=== PATIENT | female | born 1980 | race Two or more races ===

== ENCOUNTER 2019-07-19 10:07 | Inpatient (IN) | payer MEDICAID, OTHER ==
[~2019-07-19] VITALS: Ht 160 cm; Wt 70.0 kg
[2019-07-19] MEDS ORDERED: LORazepam 2MG/ML-1ML VIAL IV ONE ×2 (10:15→10:30)
[2019-07-19] MEDS ORDERED: SODIUM CHLORIDE 0.9% 1,000 ML IV ONE ×3 (10:15→10:17)
[2019-07-19] MEDS ORDERED: ACETAMINOPHEN 650 MG RECT SUPP PR ONE (10:15)
[2019-07-19 11:07] LABS: Basophils # (auto) 0 uL; Basophils % (auto) 0.4 % (0.0-2.0); Eosinophils # (auto) 0 uL; Eosinophils % (auto) 0.1 % (0.0-7.0); Hematocrit 38.1 % (36.0-46.0); Lymphocytes # (auto) 0.3 uL; Mean Corpuscular Hemoglobin 28.8 pg (28.0-32.0); Mean Corpuscular Hgb Conc. 34.1 g/dL (32.0-36.0); Mean Corpuscular Volume 84.7 fL (80.0-100.0); Monocytes # (auto) 0.2 uL; Monocytes % (auto) 2.7 % (0.0-12.0); Neutrophils % (auto) 92.8 % (37.0-80.0); Platelet Count (auto) 206 10^3/uL (140-450); Red Blood Cells 4.51 10^6/uL (4.0-5.20); Red Cell Distribution Width 15.1 % (11.8-14.3); White Blood Cell 6.4 10^3/uL (4.4-10.8)
[2019-07-19 11:19] LABS: Urine Bacteria NONE SEEN /hpf (None Seen); Urine Blood 2+ /uL (Negative); Urine Hyaline Cast FEW /lpf (0 - 2); Urine Mucus FEW (None Seen); Urine Specific Gravity 1.017 (1.001-1.035); Urine WBC 1 /hpf (0 - 5)
[2019-07-19 13:10] LABS: Alkaline Phosphatase 84 U/L (45-117); Anion Gap 9 (5-15); Aspartate Aminotransferase 66 U/L (15-37); BUN/Creatinine Ratio 14.1; Blood Urea Nitrogen 14 mg/dL (7-18); Carbon Dioxide 16 mmol/L (21-32); Chloride 115 mmol/L (98-107); GFR African American 80 mL/min; GFR Non-African American 66 mL/min; Glucose 66 mg/dL (74-106); Potassium 4.8 mmol/L (3.5-5.1); Sodium 140 mmol/L (136-145)
[2019-07-19 13:11] LABS: Alanine Aminotransferase 61 U/L (13-56); Albumin 3.7 g/dL (3.4-5.0); Bilirubin, Total 0.4 mg/dL (0.2-1.0); Calcium 7.7 mg/dL (8.5-10.1); Total Protein 8.3 g/dL (6.4-8.2)
[2019-07-19 13:30] LABS: INR 1.06 (0.9-1.15); Partial Thromboplastin Time 29.3 sec (23.64-32.05)
[2019-07-19] MEDS ORDERED: TEMAZEPAM 15 MG CAP PO PRN (14:15)
[2019-07-19] MEDS ORDERED: MORPHINE SULF INJ 2 MG/ML SYRINGE 1ML IV PRN (14:15)
[2019-07-19] MEDS ORDERED: PROMETHAZINE HCL 25 MG/ML 1ML IV PRN (14:15)
[2019-07-19] MEDS ORDERED: NITROGLYCERIN 0.4 MG SL TAB SL PRN (14:15)
[2019-07-19] MEDS ORDERED: traMADol HCL 50 MG TAB PO PRN (14:15)
[2019-07-19] MEDS ORDERED: LACTULOSE 20Gm/30ML SOLN PO PRN (14:15)
[2019-07-19] MEDS ORDERED: ACETAMINOPHEN 500 MG TAB PO PRN (14:15)
[2019-07-19] MEDS: SODIUM CHLORIDE 0.9% 1,000 ML IV SCH (14:37)
[2019-07-19] MEDS ORDERED: LEVETIRACETAM INJ 500 MG in D5W 5% 100 ML IV ONE (15:15)
--- NOTE | 2019-07-19 15:20 | NUR ---
REPORT RECEIVED SBAR FROM GILL YAP
--- NOTE | 2019-07-19 15:30 | NUR ---
Telemetry admit from [facility] admitted to Telemetry unit after SBAR received. Patient oriented to ROSS DELANEY,RN primary RN, unit, room, bed, and unit policies regarding patient care and visiting hours. Patient now on continuous telemetry monitoring, tele box # 10 and telemetry reading on arrival to unit is 105 ST. Patient placed on bedside oxygen, weighed by bedscale and encouraged to call if they need something. Seizure precautions in place. Bed in low/locked position, bed rails up x2. HOB 30 degrees. Brooks catheter in place hung below bladder, no kinks in tubing, patent and draining. Patient on 2L N/C. Will continue to monitor.
[2019-07-19] MEDS ORDERED: cefTRIAXone 1GM/50ML D5W 50 ML IV ONE (15:45)
--- NOTE | 2019-07-19 15:45 | NUR ---
TEMPERATURE PATIENT TEMPERATURE 101.6. COOLING MEASURES IN PLACE. WILL CONTINUE TO MONITOR
[2019-07-19 16:00] VITALS: BP 103/59
[2019-07-19 16:17] VITALS: BP 103/59
--- NOTE | 2019-07-19 16:30 | NUR ---
TEMPERATURE REASSESSMENT OF TEMPERATURE 98.9F. WILL CONTINUE TO MONITOR
--- NOTE | 2019-07-19 19:40 | NUR ---
Opening Shift Note Assumed care of patient. Patient resting in bed with eyes closed, non-verbal, only moans, withdrawals and squints eyes to deep stimuli, does not follows direction. On oxygen at 2L via NC with even and unlabored respirations, no S/S of distress or SOB. Brooks secured and intact, draining to gravity, no kinks. IV to left AC 18 g intact and patent infusing NS at 75ml/hr. Seizure precautions in place, bed low locked position, HOB elevated 30 degrees, side rails up x 3 and call light within reach, bed alarm on. Will continue to monitor for changes Q1hr and PRN.
--- NOTE | 2019-07-19 20:00 | NUR ---
Moira Moss NP RE: Scheduled 2200 Keppra PO patient unable to swallow PO medication. Awaiting call back. Will continue care.
--- NOTE | 2019-07-19 20:45 | NUR ---
received call back from Moss, ROLL PANNER updated on patient status, new orders received, read back and verified, will carry out orders and continue care.
[2019-07-19] MEDS: LEVETIRACETAM INJ 500 MG in D5W 5% 100 ML IV SCH (21:52)
[2019-07-19 22:00] VITALS: BP 100/58
[2019-07-19] MEDS ORDERED: LEVETIRACETAM 500 MG TAB PO SCH (22:00)
[2019-07-20] VITALS (59 sets, daily range): BP systolic 95–126; BP diastolic 14–86
[2019-07-20] MEDS: SODIUM CHLORIDE 0.9% 1,000 ML IV SCH ×3 (06:36→20:30)
[2019-07-20] MEDS: LORazepam 2MG/ML-1ML VIAL IV PRN ×4 (06:53→10:21)
--- NOTE | 2019-07-20 06:55 | NUR ---
Seizure Received call from tele RE: HR 130's. Entered room with secondary RN Sean, noted tonic clonic seizure lasted approximately 15 seconds. Ativan was administer. BP 124/75 HR 119 o296%.
--- NOTE | 2019-07-20 07:25 | NUR ---
Paged Hospitalist Ajay GREGORY RE: Seizure entered room with day shift RN Maria Luisa, noted tonic clonic seizure lasted approximately 15 seconds. Ativan was administered.
--- NOTE | 2019-07-20 07:35 | NUR ---
Ajay FORM TAMPER OPERATOR and Fuel Yard Operator Radha at bedside for evaluation. maintenance shop clerk Jenaro long.
[2019-07-20] MEDS ORDERED: SUCCINYLCHOLINE CHLORIDE 20 MG/ML 10ML VIAL IV ONE ×2 (07:45)
[2019-07-20] MEDS ORDERED: ETOMIDATE (2MG/ML) 20ML VIAL IV ONE (07:45)
--- NOTE | 2019-07-20 07:45 | NUR ---
Family updated on patient status, Ajay INTERNET NETWORK SPECIALIST spoke with patients mother Lindsey.
--- NOTE | 2019-07-20 07:50 | NUR ---
Mookie Moss ACNP at bedside for assessment and determined patient needs to be intubated after patient failed to respond correctly and would not wake appropriately. Mother called and is bulgarian speaking only and Mookie spoke with mother. Orders received and carried out
--- NOTE | 2019-07-20 07:53 | NUR ---
15 mg Etomidate and 80 mg of Succinylcholine given by primary RN Maria Luisa per Mookie Moss orders
--- NOTE | 2019-07-20 07:55 | NUR ---
Patient intubated by Mookie DICKINSON. Size 8 and 22 at the lip. Assisted by Ally ANDERSON
[2019-07-20] MEDS ORDERED: MIDAZOLAM DRIP 50 mg/50mL 50 ML IV ONE (08:00)
[2019-07-20] MEDS: MIDAZOLAM DRIP 50 mg/50mL 50 ML IV SCH ×5 (08:10→23:44)
[2019-07-20] MEDS ORDERED: SODIUM CHLORIDE 0.9% 500 ML IV ONE (08:15)
--- NOTE | 2019-07-20 08:36 | NUR ---
Orogastric tube insertion All questions addressed. OGT inserted per MD order. Placement verified by aspiration of stomach contents, auscultation and chest xray.
--- NOTE | 2019-07-20 09:10 | NUR ---
REPORT REPORT GIVEN TO GILL YAP, IN ICU
--- NOTE | 2019-07-20 09:15 | NUR ---
Dr. Bryson notified regarding Pulmonary consult.
--- NOTE | 2019-07-20 09:25 | NUR ---
TRANSFER PATIENT TRANSFERRED TO ICU
[2019-07-20] MEDS: ACETAMINOPHEN 650 mg PER 20 mL UD PO PRN (09:51)
[2019-07-20] MEDS: cefTRIAXone 1GM/50ML D5W 50 ML IV SCH (09:54)
[2019-07-20] MEDS: LEVETIRACETAM INJ 500 MG in D5W 5% 100 ML IV SCH (10:15)
--- NOTE | 2019-07-20 10:22 | NUR ---
Witnessed patient having a seizure lasting approximately 1 minute. Ativan 1mg IVP given per PRN orders. Seizure precaution implemented per protocol. Side rails are padded.
--- NOTE | 2019-07-20 10:24 | NUR ---
Dr. Bryson at bedside.
[2019-07-20 10:36] LABS: Basophils # (auto) 0 uL; Basophils % (auto) 0.4 % (0.0-2.0); Eosinophils # (auto) 0 uL; Eosinophils % (auto) 0.1 % (0.0-7.0); Hemoglobin 11.7 g/dL (12.2-16.2); Lymphocytes # (auto) 0.7 uL; Lymphocytes % (auto) 12.5 % (10.0-50.0); Mean Corpuscular Hemoglobin 28.6 pg (28.0-32.0); Mean Corpuscular Hgb Conc. 33.4 g/dL (32.0-36.0); Mean Corpuscular Volume 85.8 fL (80.0-100.0); Monocytes # (auto) 0.4 uL; Monocytes % (auto) 7.5 % (0.0-12.0); Neutrophils # (auto) 4.5 uL; Neutrophils % (auto) 79.5 % (37.0-80.0); Platelet Count (auto) 144 10^3/uL (140-450); Red Blood Cells 4.08 10^6/uL (4.0-5.20); Red Cell Distribution Width 14.7 % (11.8-14.3); White Blood Cell 5.7 10^3/uL (4.4-10.8)
--- NOTE | 2019-07-20 10:50 | NUR ---
RT witnessed patient having a seizure. Dr. Rubin notified, orders received.
[2019-07-20 10:53] LABS: Albumin 3.4 g/dL (3.4-5.0); BUN/Creatinine Ratio 15.9; Calcium 7.8 mg/dL (8.5-10.1); Potassium 3.7 mmol/L (3.5-5.1)
[2019-07-20 10:55] LABS: Bilirubin, Total 0.6 mg/dL (0.2-1.0); Total Protein 7.8 g/dL (6.4-8.2)
[2019-07-20 10:57] LABS: Lactic Acid w/Reflex 2.7 mmol/L (0.4-2.0)
[2019-07-20] MEDS: LORAZEPAM MDV 2MG/ML 50 MG in SODIUM CHL 0.9% 25 ML IV SCH ×2 (11:35→23:45)
--- NOTE | 2019-07-20 12:11 | NUR ---
Dr. Bryson at bedside.
--- NOTE | 2019-07-20 12:13 | NUR ---
Max temperature rectally is 100.4. Cooling measures implemented per protocol. Ice packs applied to patients axillary and groin area.
--- NOTE | 2019-07-20 12:13 | NUR ---
Dr. Ugarte at bedside for central line insertion.
--- NOTE | 2019-07-20 14:43 | NUR ---
Dr. Linda at bedside.
--- NOTE | 2019-07-20 15:40 | NUR ---
Patients mother at bedside.
[2019-07-20] MEDS ORDERED: LEVETIRACETAM INJ 500 MG in D5W 5% 100 ML IV SCH (15:45)
--- NOTE | 2019-07-20 15:55 | NUR ---
Dr. Linda at bedside discussing the POC with the patients mother, who is at bedside.
[2019-07-20] MEDS: PROPOFOL 100 ML IV SCH (16:44)
[2019-07-20] MEDS ORDERED: ALBUTEROL SULF 2.5 MG/0.5ML(0.5%) NEB SOLN NEB PRN (17:30)
--- NOTE | 2019-07-20 20:00 | NUR ---
OPENING NOTE: INTUBATED AND SEDATED. ALL EXTREMITIES SPASTIC. APPEARS TO BE QUESTIONABLE DECORTICATE POSTURING. PUPILS ARE 3 AND BRISK BUT NOTED WITH A VERTICAL NYSTAGMUS. NSR, HR 70s. SBP 90-100s. 8.0 ETT 22 AT THE LIP. LS CTA, EVEN AND UNLABORED BREATHING. SpO2 100% ON CURRENT VENT SETTINGS, MINIMAL ORAL SECRETIONS. ABD SOFT. HYPOACTIVE BS. UNKNOWN LBM. OGT, + AIR BOLUS. ANTONY PATENT AND INTACT, DRAINING LIGHT ELIZABETH URINE. +MENSES. SKIN GROSSLY INTACT, SEE SKIN AND WOUND FLOWSHEET. RIGHT IJ TLC, CDI, AND PATENT WITH BLOOD RETURN. REINFORCED POC. MAINTAINED PATIENT SAFETY: BED LOCKED AND IN THE LOWEST POSITION, FREQUENT VISUAL CHECKS, SEIZURE PADS IN PLACE. NO FAMILY PRESENT AT THIS TIME, WILL CONT CARE.
--- NOTE | 2019-07-20 21:00 | NUR ---
UNABLE TO COMPLETE SEDATION VACATION AT THIS TIME: KNOWN WITH FREQUENT SEIZURES, LAST ONE ON DAY SHIFT. WILL CONT CARE Addendum: 07/20/19 at 5411 by Clare Troncoso RN RN Amended: Links added.
--- NOTE | 2019-07-20 21:21 | NUR ---
NOTED WITH LOW SERUM GLUCOSE A COUPLE OF DAYS AGO - CHECKED FINGER STICK GLUCOSE 70: 120 ML ORANGE JUICE GIVEN VIA OGT
[2019-07-20] MEDS: LEVETIRACETAM INJ 1,500 MG in D5W 5% 100 ML IV SCH (21:59)
--- NOTE | 2019-07-20 22:00 | NUR ---
BG 99
[2019-07-21] VITALS (105 sets, daily range): BP systolic 89–119; BP diastolic 6–76
--- NOTE | 2019-07-21 00:38 | NUR ---
NEURO: PUPILS REMAIN 3 AND BRISK, EYES DEVIATE DOWNWARD AND UPWARDS AND BECOME CENTERED WHEN LIGHT IS SHINED IN EYES
--- NOTE | 2019-07-21 02:56 | NUR ---
BED BATH WITH CHG WIPES, MERYL CARE, NATONY CARE, ORAL CARE, HAIR CARE, AND FULL LINEN CHANGE COMPLETED
[2019-07-21] MEDS: SODIUM CHLORIDE 0.9% 1,000 ML IV SCH ×2 (03:26→21:30)
[2019-07-21 04:15] LABS: Basophils # (auto) 0 uL; Basophils % (auto) 0.6 % (0.0-2.0); Eosinophils # (auto) 0.1 uL; Eosinophils % (auto) 2.1 % (0.0-7.0); Hematocrit 31.3 % (36.0-46.0); Hemoglobin 10.7 g/dL (12.2-16.2); Lymphocytes # (auto) 0.6 uL; Lymphocytes % (auto) 17.2 % (10.0-50.0); Mean Corpuscular Hemoglobin 28.9 pg (28.0-32.0); Mean Corpuscular Volume 84.9 fL (80.0-100.0); Monocytes # (auto) 0.4 uL; Monocytes % (auto) 12.1 % (0.0-12.0); Neutrophils # (auto) 2.4 uL; Platelet Count (auto) 118 10^3/uL (140-450); Red Blood Cells 3.69 10^6/uL (4.0-5.20); Red Cell Distribution Width 14.4 % (11.8-14.3); White Blood Cell 3.5 10^3/uL (4.4-10.8)
[2019-07-21 04:28] LABS: Albumin 3.1 g/dL (3.4-5.0); Calcium 7.6 mg/dL (8.5-10.1); Potassium 3.1 mmol/L (3.5-5.1)
[2019-07-21 04:33] LABS: Bilirubin, Total 0.8 mg/dL (0.2-1.0); Total Protein 7.2 g/dL (6.4-8.2)
[2019-07-21] MEDS: MIDAZOLAM DRIP 50 mg/50mL 50 ML IV SCH ×6 (05:15→23:20)
[2019-07-21] MEDS: PROPOFOL 100 ML IV SCH (05:44)
--- NOTE | 2019-07-21 06:20 | NUR ---
Respiratory note: RECEIVED PATIENT ON V6 V200 VENT ORALLY INTUBATED WITH AN 8.0 ETT SECURED VIA CHELY AT THE 22CM MARKING AT THE LIP, AND MECHANICALLY VENTILATED WITH THE ABOVE CHARTED SETTINGS. SPO2 100%, LUNG SOUNDS CLEAR T/O, NO SECRETIONS WHEN SUCTIONED. SKIN IS WARM/DRY TO THE TOUCH AND IS INTACT NEAR CHELY SITE, THERE IS NO BREAKDOWN NOTED FROM ETT OR CHELY. THERE IS AN OGT IN PLACE AND SECURED TO THE ETT, A TRIPLE LUMEN CENTRAL LINE IS PLACED IN THE RIGHT IJ. THERE IS NON PITTING EDEMA NOTED IN BILATERAL UPPER EXTREMITIES WELL LOWER EXTREMITIES. LEG SEQUENTIALS ARE IN PLACE AND OPERATIONAL. THERE IS NO NEW AM CXR TO ASSESS. PATIENT IS UNRESPONSIVE TO BOTH VERBAL/TACTILE STIMULI AND IS SEDATED ON VERSED AND PROPOFOL DRIPS. SHE IS RESTING COMFORTABLY AND TOLERATING VENT WELL, NO CHANGES MADE. VENT PLUGGED INTO RED OUTLET AND ALL ALARMS ARE SET AND AUDIBLE. WILL CONTINUE TO ASSESS PATIENT WELL VENTILATOR FUNCTION. PRN MED-NEB NOT INDICATED.
--- NOTE | 2019-07-21 06:28 | NUR ---
CLOSING NOTE: REMAINS INTUBATED AND SEDATED. VSS. NO SEIZURE ACTIVITY. WILL ENDORSE CARE TO DAY SHIFT
--- NOTE | 2019-07-21 07:36 | NUR ---
REPORT AND CARE ENDORSED TO GILL COLBERT
--- NOTE | 2019-07-21 08:00 | NUR ---
Dr. Bryson at bedside: Wants to know when Dr. Linda will decrease sedation to plan for CPAP.
--- NOTE | 2019-07-21 09:00 | NUR ---
Assumed care of patient.
[2019-07-21] MEDS: cefTRIAXone 1GM/50ML D5W 50 ML IV SCH (10:09)
[2019-07-21] MEDS: LEVETIRACETAM INJ 1,500 MG in D5W 5% 100 ML IV SCH ×2 (11:00→22:00)
--- NOTE | 2019-07-21 11:00 | NUR ---
NUTRITION CONSULT/ASSESSMENT NOTES Please refer to link notes of nutrition screen form filed under the intervention section of the plan of care for further details. Est. Needs: 1500 kcal to 1700 kcal (25-30 kcal/kgBW), 59 gms to 74 gms pro (0.8-1.0 gms/kgBW). Will continue to monitor pertinent labs and reassess nutrient need prn Thank you for this consult. Addendum: 07/21/19 at [address] Amended: Links added.
[2019-07-21] MEDS ORDERED: POTASSIUM CHL 20MEQ/100ML 100 ML IV ONE (12:45)
--- NOTE | 2019-07-21 12:50 | NUR ---
WOUND CARE NOTE: PATIENT ADMITTED TO [facility] WITH DIAGNOSIS OF SEIZURE. SHE IS INTUBATED, SEDATED. CURRENT DEANNA SCORE IS 11. PATIENT NOTED TO HAVE WOUND TO INTRAGLUTEAL FOLD UPON ADMIT. WOUND DOCUMENTED AT THAT TIME BY BEDSIDE NURSE. WOUND PHOTO TAKEN FOR REFERENCE BY BEDSIDE NURSE. PATIENT HAS MILD MASD WITH A 1 X 0.2 CM PARTIAL THICKNESS SKIN TEAR/FISSURE TO INTRAGLUTEAL FOLD. WOUND BED AND PERIWOUND IS PINK. PATIENT WOULD BENEFIT FROM: FREQUENT TURN SCHEDULE Q 2 HRS, PRN CONDITION PERMITS, WITH PRESSURE REDISTRIBUTION USING PILLOWS/WEDGES, BID/PRN APPLICATION WITH ZGUARD TO OPEN WOUND AT INTRAGLUTEAL FOLD, COVERING WITH OPTIFOAM GENTLE SACRAL DRESSING, SKIN/WOUND CARE PLAN, DIETARY CONSULT, CONTINUED MONITORING BY WOUND CARE TEAM. Addendum: 07/21/19 at 1542 by Asmita Olivarez RN Amended: Links added.
--- NOTE | 2019-07-21 12:50 | NUR ---
Dr. Clemens at bedside: Ordered K-cindy for potassium 3.1, start TF tonight is no plans to CPAP.
[2019-07-21] MEDS ORDERED: Jevity 1.2 Cal/Fiber 1 Liter GT SCH (13:15)
--- NOTE | 2019-07-21 13:45 | NUR ---
Dr. Linda at bedside: Updated on patients status, mom still bought in old medication and new medication had no patient information. Addendum: 07/21/19 at 1728 by Shayla Awad RN Titrate slowly off sedation to prepare patient for CPAP.
--- NOTE | 2019-07-21 14:11 | NUR ---
EEG- ELECTROENCEPHALOGRAM COMPLETED ON 07/21/2019.
--- NOTE | 2019-07-21 15:30 | NUR ---
Wound Care: new orders Cleanse skin with wound cleanser, Apply Z-guard to wound, pat dry with gauze and cover with optifoam dressing.
--- NOTE | 2019-07-21 18:25 | NUR ---
RT NOTE RECEIVED PT INTUBATED AND ON VENT V6 ON STATED SETTINGS. VENT IS PLUGGED TO RED OUTLET. ALARMS ARE ON AND AUDIBLE AT NURSES STATION. AMBU BAG AT BEDSIDE AND CONNECTED TO O2 SOURCE. 8.0 ETT IS SECURED WITH ANCHORFAST AT 22 CM TO THE ORAL LEFT. BILATERAL BS ARE CTA. PT WAS SUCTIONED FOR NO RETURN. CONT ORDERED. POX 100% Addendum: 07/21/19 at 2045 by Sade Campos RT Amended: Links added.
--- NOTE | 2019-07-21 19:00 | NUR ---
Endorsed care to GILL Caro.
--- NOTE | 2019-07-21 19:42 | NUR ---
ADMITTED WITH SEIZURES. PADDED RAILS. NSR WITHOUT ECTOPY. MAINTENANCE FLUID. VERSED AT 15MG/HOUR. ETT TO VENTILATOR. NO VENT CHANGES TODAY. PLAN IS TO WEAN DOWN THE VERSED SLOWLY. IV: RIJ TLC. RECEIVED KCL TODAY FOR A POTASSIUM FO 3.1. PLAN: START JEVITY PER OGT. OGT IS DRAINING GREEN LIQUID. GLUTEAL CLEFT SKIN TEAR. WOUND CARE INVOLVED. ANTONY IN PLACE.
--- NOTE | 2019-07-21 20:00 | NUR ---
NO BLINK, GAG OR COUGH. DOES NOT MOVE EXTREMITIES TO PAINFUL STIMULI. ORAL CARE DONE. ONE SORE ON LOWER LIP. SORE IS SCABBED. ORALLY INTUBATED. OGT TAKEN FROM SUCTION AND JEVITY STARTED AT 10CC/HR. NGT CONTENTS ARE GREEN. ABDOMEN SOFT. ANTONY IN PLACE DRAINING YELLOW LIQUID TO DOWN DRAIN BAG. ALL PULSES PALPABLE. ALL EXTREMITIES ARE WARM. SCDS ON. NO SEIZURE ACTIVITY.
--- NOTE | 2019-07-21 20:15 | NUR ---
RT NOTE ROUTINE VENT CHECK DONE. PT INTUBATED AND ON VENT V6 ON STATED SETTINGS. VENT IS PLUGGED TO RED OUTLET. ALARMS ARE ON AND AUDIBLE AT NURSES STATION. AMBU BAG AT BEDSIDE AND CONNECTED TO O2 SOURCE. 8.0 ETT IS SECURED WITH ANCHORFAST AT 22 CM TO THE ORAL LEFT. CONT ORDERED. POX 100% Addendum: 07/21/19 at 2116 by Sade Campos RT Amended: Links added.
--- NOTE | 2019-07-21 22:00 | NUR ---
NO SEIZURE ACTIVITY. DECREASING THE VERSED SLOWLY. LUNGS CLEAR. NSR WITHOUT ECTOPY. NO FEVER. ADEQUATE URINE OUTPUT. IV SHOWS NO REDNESS OR SWELLING.
--- NOTE | 2019-07-21 22:10 | NUR ---
RT NOTE ROUTINE VENT CHECK DONE. PT INTUBATED AND ON VENT V6 ON STATED SETTINGS. VENT IS PLUGGED TO RED OUTLET. ALARMS ARE ON AND AUDIBLE AT NURSES STATION. AMBU BAG AT BEDSIDE AND CONNECTED TO O2 SOURCE. 8.0 ETT IS SECURED WITH ANCHORFAST AT 22 CM TO THE ORAL CENTER. PT SUCTIONED BY RT GILL ALBERTS FOR NO RETURN. CONT ORDERED. POX 100% Addendum: 07/22/19 at 0043 by Sade Campos RT Amended: Links added.
[2019-07-22] VITALS (102 sets, daily range): BP systolic 92–115; BP diastolic 50–71
--- NOTE | 2019-07-22 | NUR ---
NO SEIZURE ACTIVITY. DECREASING VERSED SLOWLY. NSR WITHOUT ECTOPY. IV SITE SHOWS NO REDNESS OR SWELLING. LUNGS CLEAR. NOTHING SUCTIONED FROM THE ETT. ORAL CARE DONE.
--- NOTE | 2019-07-22 00:22 | NUR ---
RT NOTE ROUTINE VENT CHECK DONE. PT INTUBATED AND ON VENT V6 ON STATED SETTINGS. VENT IS PLUGGED TO RED OUTLET. ALARMS ARE ON AND AUDIBLE AT NURSES STATION. AMBU BAG AT BEDSIDE AND CONNECTED TO O2 SOURCE. 8.0 ETT IS SECURED WITH ANCHORFAST AT 22 CM TO THE ORAL CENTER. HME AND INLINE SUCTION CHANGED WITHOUT INCIDENT. CONT ORDERED. POX 100% Addendum: 07/22/19 at 0043 by Sade Campos RT Amended: Links added.
--- NOTE | 2019-07-22 02:00 | NUR ---
NSR WITHOUT ECTOPY. LUNGS CLEAR. +GAG AND COUGH FOR THE FIRST TIME, WITHDRAWS FEET TO PAINFUL STIMULI, JUSTEN.
--- NOTE | 2019-07-22 02:16 | NUR ---
RT NOTE ROUTINE VENT CHECK DONE. PT INTUBATED AND ON VENT V6 ON STATED SETTINGS. VENT IS PLUGGED TO RED OUTLET. ALARMS ARE ON AND AUDIBLE AT NURSES STATION. AMBU BAG AT BEDSIDE AND CONNECTED TO O2 SOURCE. 8.0 ETT IS SECURED WITH ANCHORFAST AT 22 CM TO THE ORAL CENTER. CONT ORDERED. POX 100% Addendum: 07/22/19 at 0226 by Sade Campos RT Amended: Links added.
[2019-07-22] MEDS: SODIUM CHLORIDE 0.9% 1,000 ML IV SCH ×2 (03:00→22:30)
--- NOTE | 2019-07-22 04:00 | NUR ---
NO SEIZURE ACTIVITY. NSR WITHOUT ECTOPY. MOVES FEET. DOES NOT MOVE ARMS. FOLLOWS ALONG WITH THE VENTILATOR RATE. IV SHOWS NO REDNESS OR SWELLING.
[2019-07-22] MEDS: MIDAZOLAM DRIP 50 mg/50mL 50 ML IV SCH (04:09)
[2019-07-22 04:18] LABS: Basophils # (auto) 0 uL; Basophils % (auto) 0.9 % (0.0-2.0); Eosinophils # (auto) 0.2 uL; Eosinophils % (auto) 5.6 % (0.0-7.0); Hematocrit 30.4 % (36.0-46.0); Hemoglobin 10.1 g/dL (12.2-16.2); Lymphocytes # (auto) 0.6 uL; Lymphocytes % (auto) 21.3 % (10.0-50.0); Mean Corpuscular Hemoglobin 28.3 pg (28.0-32.0); Mean Corpuscular Hgb Conc. 33.3 g/dL (32.0-36.0); Monocytes # (auto) 0.3 uL; Neutrophils # (auto) 1.7 uL; Neutrophils % (auto) 60.2 % (37.0-80.0); Platelet Count (auto) 127 10^3/uL (140-450); Red Blood Cells 3.58 10^6/uL (4.0-5.20); Red Cell Distribution Width 14.2 % (11.8-14.3); White Blood Cell 2.8 10^3/uL (4.4-10.8)
--- NOTE | 2019-07-22 04:18 | NUR ---
RT NOTE ROUTINE VENT CHECK DONE. PT INTUBATED AND ON VENT V6 ON STATED SETTINGS. VENT IS PLUGGED TO RED OUTLET. ALARMS ARE ON AND AUDIBLE AT NURSES STATION. AMBU BAG AT BEDSIDE AND CONNECTED TO O2 SOURCE. 8.0 ETT IS SECURED WITH ANCHORFAST AT 22 CM TO THE ORAL CENTER. CONT ORDERED. POX 100% Addendum: 07/22/19 at 0433 by Sade Campos RT Amended: Links added.
[2019-07-22 04:41] LABS: Albumin 2.8 g/dL (3.4-5.0); BUN/Creatinine Ratio 8.5; Calcium 7.9 mg/dL (8.5-10.1)
[2019-07-22 04:42] LABS: Total Protein 6.8 g/dL (6.4-8.2)
--- NOTE | 2019-07-22 05:00 | NUR ---
CHG BATH. SILICONE LOTION TO SKIN. COMPLETE LINEN CHANGE. CXR COMPLETED.
--- NOTE | 2019-07-22 05:47 | NUR ---
CALL IN TO HOSPITALIST TO REPORT A POTASSIUM OF 3.0
[2019-07-22] MEDS ORDERED: POTASSIUM CHL 20MEQ/100ML 100 ML IV ONE ×3 (05:51→14:00)
--- NOTE | 2019-07-22 05:54 | NUR ---
ORDER FOR Ayleen CRAVEN 20MEQ
--- NOTE | 2019-07-22 07:15 | NUR ---
REPORT RECEIVED FROM PHARMACY TECHNOLOGIST NURSE. PATIENT RESTING IN BED INTUBATED AND SEDATED RESPIRATIONS EVEN AND UNLABORED. NO SIGNS OF ACUTE DISTRESS NOTED. BED IN LOW POSITION. CALL LIGHT IN REACH. WILL CONTINUE TO MONITOR.
[2019-07-22] MEDS: cefTRIAXone 1GM/50ML D5W 50 ML IV SCH (08:46)
[2019-07-22] MEDS: LEVETIRACETAM INJ 1,500 MG in D5W 5% 100 ML IV SCH ×2 (10:47→21:39)
--- NOTE | 2019-07-22 10:53 | NUR ---
DR MONTEIRO AT BEDSIDE TO ASSESS PATIENT AND DISCUSS PLAN OF CARE. PER MD CPAP PATIENT IF CLEARED BY NEUROLOGY.
--- NOTE | 2019-07-22 11:28 | NUR ---
DR MAGAÑA AT BEDSIDE TO ASSESS PATIENT AND DISCUSS PLAN OF CARE. PER MD PATIENT OK FOR CPAP AND WEANING SEDATION.
--- NOTE | 2019-07-22 13:30 | NUR ---
DR ROBLES AT BEDSIDE TO ASSESS PATIENT AND DISCUSS PLAN OF CARE. MD INFORMED THAT POTASSIUM LEVEL WAS REPLACED, BUT DOING REDRAW NOW. PER MD IF 3.2 ADMINISTER ANOTHER 20MEQ POTASSIUM RIDER IVP. ALL ORDERS NOTED IN CHART.
--- NOTE | 2019-07-22 13:48 | NUR ---
MOTHER AT BEDSIDE AND UPDATED ON PLAN OF CARE.
--- NOTE | 2019-07-22 16:25 | NUR ---
PT TRANSPORTED TO CT WITH NO INCIDENT REPORTED PT ON HEAD OF STRATEGY WITH HR 102, SPO2 97%. TRANSPORT VENT USED TO VENTILATE WITH AMBUBAG ATTACHED TO O2 TANK AND MASK. GILL COLBERT DURING TRANSPORT. WILL CONTINUE TO MONITOR PT.
[2019-07-22] MEDS: ACETAMINOPHEN 650 mg PER 20 mL UD PO PRN (19:27)
--- NOTE | 2019-07-22 19:27 | NUR ---
TEMPERATURE 100. ICE BAG TO BACK OF NECK. TYLENOL GIVEN.
--- NOTE | 2019-07-22 19:57 | NUR ---
ADMITTED WITH SEIZURES. MOM STATED THAT THE EXPENSE FOR HER SEIZURE MEDICATIONS ARE TOO HIGH. INTUBATED IN ER. LAST SEIZURE WAS IN ER. NOW IS ON KEPPRA IV. RAILS PADDED ON BOTH SIDES OF THE BED. JUSTEN. DOES NOT OPEN EYES SPONTANEOUSLY OR TO COMMAND. WHEN YOU OPEN HER EYELIDS, HER EYES ARE ROVING. ORALLY INTUBATED. ORAL NGT WITH JEVITY AT 20CC/HR. COPIOUS ORAL SECRETIONS. NOTHING SUCTIONED FROM THE ETT. ONLY VENTILATOR CHANGE TODAY WAS DR MONTEIRO REQUESTED THAT THE RATE BE TURNED DOWN TO 12. RR IS 17-19. NSR WITHOUT ECTOPY. TEMP IS 100. NO SHEET ON. ICE TO THE BACK OF HER NECK. ABDOMEN SOFT.ANTONY IN PLACE DRAINING CLEAR YELLOW LIQUID TO DOWN DRAIN BAG. NO PERIPHERAL EDEMA. ALL EXTREMITIES ARE WARM. ALL PERIPHERAL PULSES ARE PALPABLE. SCDS ON. NOT MOVING HER ARMS. WITHDRAWS SLIGHTLY WHEN I DO A BABINSKI CHECK.
--- NOTE | 2019-07-22 20:34 | NUR ---
RECHECK ON TEMP 100.3. MORE ICE BAGS PLACED.
--- NOTE | 2019-07-22 21:56 | NUR ---
TEMP 99.3. REPOSITIONED TO LEFT SIDE. SUCTIONED A SMALL AMOUNT OF COELLO SECRETIONS FROM THE ETT. COUGHED SEVERAL TIMES BRINGING HER MITTENS UP TO THE ETT. CALL PLACED TO DR CASTELLANOS FOR SEDATION. ALL SEDATION WAS DCD TODAY WHEN SHE WAS STILL SLEEPY. ORAL CARE. NSR WITHOUT ECTOPY.
[2019-07-22] MEDS ORDERED: fentaNYL Drip 2500mCg/250mlNS 250 ML IV SCH (23:02)
[2019-07-22] MEDS ORDERED: MIDAZOLAM HCL 1MG/1ML-2 ML VIAL IV PRN (23:15)
[2019-07-23] VITALS (54 sets, daily range): BP systolic 95–127; BP diastolic 57–81
--- NOTE | 2019-07-23 | NUR ---
WAKES UP AND COUGHS WHEN YOU MOVE HER HEAD. COPIOUS ORAL SECRETIONS. NOTHING SUCTIONED FROM THE ETT. OCCASIONALLY OPENS HER EYES ON HER OWN AND LOOKS AROUND. WILL BRING UP HER ARMS WITH MITTENS ON TO HER CHEST. RARE MOVEMENT OF HER LEGS. JUSTEN. LUNGS CLEAR. ORAL CARE DONE. ABDOMEN SOFT. PULSES PALPABLE. NO SEIZURE ACTIVITY. BOTH SIDERAILS REMAIN PADDED. ANTONY DRAINING CLEAR YELLOW LIQUID TO DOWN DRAIN BAG. TUBE FEEDING DISCONTINUED DUE TO CPAP TRIAL LATER TODAY. NO SEDATION NEEDED AT THIS TIME. SBP 90S - 110. NO ECTOPY. BOTH FEET IN POSITION RESEMBLING FOOT DROP. ABLE TO EXERCISE FEET WITH FULL RANGE OF MOTION. RIJ TLC IN PLACE WITH CURRENT DRESSING. NO REDNESS, SWELLING OR DRNG FROM THE IV SITE.
--- NOTE | 2019-07-23 00:15 | NUR ---
TEMP 99.6. NEW ICE BAGS PLACED.
--- NOTE | 2019-07-23 02:00 | NUR ---
NO SEIZURE ACTIVITY. NSR WITHOUT ECTOPY. SBP 90-116. HR IN THE 80S. WAKES UP WHEN WE WORK WITH HER. QUIETS DOWN EASILY. IV PATENT.
--- NOTE | 2019-07-23 03:22 | NUR ---
AM LABS DONE
--- NOTE | 2019-07-23 04:00 | NUR ---
NO CHANGE IN ASSESSMENT. NSR WITHOUT ECTOPY. WAKES UP BRIEFLY. OPENS EYES. DOES NOT FOLLOW COMMANDS OR HELP WITH TURNING. MOVES ALL EXTREMITIES EQUALLY. EXTREMITIES WARM. MITTENS ON. NORMAL TEMPERATURE. LARGE AMOUNT OF CLOUDY WHITE ORAL SECRETIONS. AT LEAST ONCE AN HOUR I SUCTION HER MOUTH.
[2019-07-23 04:21] LABS: Basophils # (auto) 0 uL; Basophils % (auto) 0.7 % (0.0-2.0); Eosinophils # (auto) 0.2 uL; Eosinophils % (auto) 5.4 % (0.0-7.0); Hematocrit 30.4 % (36.0-46.0); Hemoglobin 10.3 g/dL (12.2-16.2); Lymphocytes # (auto) 0.7 uL; Lymphocytes % (auto) 19.6 % (10.0-50.0); Mean Corpuscular Hemoglobin 28.9 pg (28.0-32.0); Mean Corpuscular Hgb Conc. 33.9 g/dL (32.0-36.0); Mean Corpuscular Volume 85.4 fL (80.0-100.0); Monocytes # (auto) 0.5 uL; Monocytes % (auto) 13.2 % (0.0-12.0); Neutrophils # (auto) 2.1 uL; Neutrophils % (auto) 61.1 % (37.0-80.0); Platelet Count (auto) 138 10^3/uL (140-450); Red Blood Cells 3.56 10^6/uL (4.0-5.20); Red Cell Distribution Width 14.1 % (11.8-14.3); White Blood Cell 3.5 10^3/uL (4.4-10.8)
--- NOTE | 2019-07-23 04:44 | NUR ---
CHG BATH COMPLETED. SMALL AMOUNT OF LOCHIA NOTED, DARK BROWN RED DRNG FROM VAGINA.
--- NOTE | 2019-07-23 06:00 | NUR ---
WAKING UP. MACDONALD EQUALLY WELL. OPENS EYES SPONTANEOUSLY.
--- NOTE | 2019-07-23 07:15 | NUR ---
Opening Shift Note: Report received from GILL Caro. Patient continues intubated and off sedation, no seizures notice. See Interventions for further details on patient assessment.
--- NOTE | 2019-07-23 07:45 | NUR ---
DR. MAGAÑA AT BEDSIDE: PATIENT FOLLOWS COMMANDS APPROPRIATELY IN RUSSIAN.
--- NOTE | 2019-07-23 09:02 | NUR ---
Weekend director of retail operations-I did not receive a page regarding the social service consult for this patient.
--- NOTE | 2019-07-23 09:02 | NUR ---
Tool Design Checker paged for CPAP orders.
--- NOTE | 2019-07-23 09:14 | NUR ---
Dr. Amaya at bedside: New orders placed- Potassium cindy 40meq, after successful extubation discontinued chest xray order and abg order, then after 6 hours of maintaining oxygenation downgrade to tele with sitter.
[2019-07-23] MEDS ORDERED: POTASSIUM CHLORIDE 40 MEQ, LIDOCAINE 1% (LOCAL ANESTH.) 4 ML in SODIUM CHL 0.9% 100 ML IV ONE (09:15)
--- NOTE | 2019-07-23 09:20 | NUR ---
Dr. Bryson at bedside: CPAP WITH PRESSURE SUPPORT OF 8 AND PEEP OF 5, ABG IN ONE HOUR.
--- NOTE | 2019-07-23 09:30 | NUR ---
Patient CPAP initiated.
--- NOTE | 2019-07-23 09:30 | NUR ---
Respiratory note: PT AWAKE/ALERT AND FOLLOWING COMMANDS. PLACED PT ON CPAP +5, PS8 PER DR MONTEIRO'S ORDERS. VENT ALARMS SET AND AUDIBLE. NOTIFIED GILL TESFAYE OF CHANGES. PT TOLERATING CPAP WELL, RESTING COMFORTABLY IN BED. ATTEMPTED WEANING PARAMETERS: NIF -6, VC 709 ML, RSBI 56. PT WITH POOR NIF, STILL WEAK. ABG TO FOLLOW. GILL TESFYAE AWARE. WILL CONTINUE TO MONITOR.
[2019-07-23] MEDS: cefTRIAXone 1GM/50ML D5W 50 ML IV SCH (09:59)
--- NOTE | 2019-07-23 10:35 | NUR ---
Respiratory note: REATTEMPTED WEANING PARAMETERS: NIF -44, VC 1.2 L, RSBI 62, LEAK 150 ML. ABG DRAWN, RESULTS AND PARAMETERS GIVEN TO GILL TESFAYE. RN CALLED DR MONTEIRO, AWAITING ORDERS.
--- NOTE | 2019-07-23 11:05 | NUR ---
Patient extubated: on cool aerosol mask per Dr. Bryson. Tolerating well, RT Callie at bedside.
--- NOTE | 2019-07-23 11:05 | NUR ---
Respiratory note: EXTUBATED PT WITH GILL TESFAYE AT BEDSIDE PER DR MONTEIRO'S ORDERS. PT PLACED ON COOL AEROSOL 8L, 30%. HR 102, RR 16, POX 100% NO STRIDOR NOTED AT THIS TIME.
[2019-07-23] MEDS: SODIUM CHLORIDE 0.9% 1,000 ML IV SCH ×2 (11:07→21:12)
[2019-07-23] MEDS: LEVETIRACETAM INJ 1,500 MG in D5W 5% 100 ML IV SCH ×2 (11:07→21:51)
--- NOTE | 2019-07-23 12:45 | NUR ---
Nutrition Follow-up Notes: Wt.: 69.9 kg Pt continued to be NPO with RTs by bedside. per RN pt on CPAP. pt is currently NPO off EN support for CPAP. pt was on EN support with Jevity 1.2 @ 20 ml.hr Est. Needs: 1500 kcal to 1700 kcal (25-30 kcal/kgBW), 59 gms to 74 gms pro (0.8-1.0 gms/kgBW). Will continue to monitor pertinent labs and reassess nutrient need prn Labs: GLU 112 H, ALB 2.8 L, CA 7.9 L. Skin: Deondre scale 13 mod risk, skin tear sacrum per coffee machine technician. GI: Pt has no BM reported per coffee machine technician. PES: Altered nutrition related lab values r/t current/chronic medical condition aeb hypokalemia, low. renal labs, elev. LFTs, hypocalcemia and mild hypoalbuminemia Increased nutrient needs r/t current chronic medical condition aeb intubated, sedated, mild hypoalbuminemia, NPO. Will continue to monitor NPO status, skin status, pertinent labs and weight trend. F/u in 2-3 days. Rec.: 1) Resume EN support with formula choice of Jevity 1.2 Keyur @ 55 ml/hr goal rate as tolerated if pt fails CPAP 3.) Consider daily MVI with minerals and Asc acid 500 mgs BID prn. 4.) Advance gradually to oral diet when medically appropriate. 5.) Refer to RD for further nutrition educ. and weight monitoring upon discharge. 6.) Continue current plan of care.
--- NOTE | 2019-07-23 15:35 | NUR ---
Assessment and SS consult Pt is a 39 yr disoriented and "mentally delayed female". Pt was recently extubated but currently unable to speak. Pt's mom was bedside, and only speaks Mongolian, so pt's nurse Shayla translated for assessment. Pt's mother Lindsey Jamil, is pt's emergency contact at [phone]. SS consult for pt being "homeless" and pt's mother being "ignorant about getting help for daughter". Also for pt being "mentally delayed due to history w/ seizures." Pt's mother reported that the pt and her recently moved to [place] from [place] into a home together. Prior to admit, pt was ambulatory and independent with ADL's. Pt's mom helps cook and clean. Pt insurance is still based out of [place] and pt's mom stated that pt recently stopped receiving [employer] income. provided pt's mom with [employer]/ [employer] office information to change pt's address and apply for [place] assistance. Pt's only receives family supports through income that mom makes. Pt mother is able to transport pt upon d/c. Further needs will be assessed closer to d/c. Addendum: 07/23/19 at 1557 by MARY MADDOX Amended: Links added.
--- NOTE | 2019-07-23 16:15 | NUR ---
DIGITAL IMAGER MARY OBTAINED INFORMATION FROM MOTHER- GAVE HER LOCATION WHERE SHE CAN TRANSFER HER MEDICAL TO THE [facility] LOCATION. GAVE MOTHER INFORMATION AND VOCALIZED UNDERSTANDING OF WHERE TO CALL.
[2019-07-23 18:30] LABS: BUN/Creatinine Ratio 8.3; Calcium 8.4 mg/dL (8.5-10.1); Potassium 3.5 mmol/L (3.5-5.1)
--- NOTE | 2019-07-23 18:55 | NUR ---
Endorsed care to GILL Caro.
--- NOTE | 2019-07-23 20:00 | NUR ---
SUPERVISOR [employer] NOTIFIED. NO SITTER AVAILABLE. RN TRANSLATED PASHTO. PATIENT IS ORIENTED TO HER NAME. IN GETTING HER TO UNDERSTAND HOW TO USE THE CALL LIGHT, SHE FAILED IN THAT SHE JUST KEPT PUSHING IT WHEN WHAT SHE WANTED TO DO WAS CHANGE THE TV CHANNEL. WHEN WE ASKED HER WHAT WOULD SHE DO IF SHE NEEDED THE NURSE, SHE DIDN'T RESPOND. HAS A WHISPER VOICE. MOSTLY PASHTO SPEAKING. JUSTEN. FED HERSELF DINNER. NOT A GREAT APPETITE. MACDONALD WELL. WATCHING TV.NO EDEMA. SCDS ON. CENTRAL LINE PLACEMENT, CLEAN CURRENT DRESSING WITH BIOPATCH. LUNGS CLEAR. ROOM AIR. NSR WITHOUT ECTOPY. ANTONY IN PLACE DRAINING CLEAR YELLOW LIQUID TO DOWN DRAIN BAG.
--- NOTE | 2019-07-23 20:00 | NUR ---
HAVE AN ORDER FOR TRANSFER TO TELE WITH A SITTER
--- NOTE | 2019-07-23 22:03 | NUR ---
KEPPRA INFUSING. WILL WAIT TILL IT IS FINISHED BEFORE TRANSFERRING HER TO [facility]. REPORT CALLED TO GILL TIERNEY. FLOTER WILL BE AVAILABLE.
--- NOTE | 2019-07-23 22:12 | NUR ---
JACKELYN VALENZUELA. TELEMETRY BOX PLACED ON PATIENT. PLACED IN A WHEELCHAIR.
--- NOTE | 2019-07-23 22:25 | NUR ---
PATIENT IN WHEELCHAIR. STOOD WELL ON FEET. TELEMETRY BOX ON. CLOTHING SENT WITH PATIENT. TRANSFERED WITH PRODUCT SAFETY TESTER AND TECH.
--- NOTE | 2019-07-23 22:28 | NUR ---
ICU patient trans to floor SBAR recieved for patient ZANE HARPER transfered to 288B via on operations officer trust department and portable 02. All patient medications and personal belongings transfered with patient to receiving floor. Patient care transfered to Albaro GARLAND. NOTE: Patient in bed laying down comfortable and able to make simple needs known and follow simple commands. Patient is czech speaking only and follows directions when spoken to in czech. Patient currently in no discomfort or distress at this time.
--- NOTE | 2019-07-23 22:28 | NUR ---
Hospitalist paged: Hospitalist paged d/t patient being transferred to tele floor with no PRN seizure medication on file.
--- NOTE | 2019-07-23 22:40 | NUR ---
Hospitalist returned page: Hospitalist updated and informed of patients current condition and new orders received and verified.
[2019-07-23] MEDS ORDERED: LORazepam 2MG/ML-1ML VIAL IV PRN (22:45)
[2019-07-24 06:02] LABS: Basophils # (auto) 0 uL; Basophils % (auto) 0.8 % (0.0-2.0); Eosinophils # (auto) 0.1 uL; Eosinophils % (auto) 6.2 % (0.0-7.0); Hematocrit 30.9 % (36.0-46.0); Hemoglobin 10.4 g/dL (12.2-16.2); Lymphocytes # (auto) 0.5 uL; Lymphocytes % (auto) 21.9 % (10.0-50.0); Mean Corpuscular Hemoglobin 28.5 pg (28.0-32.0); Mean Corpuscular Hgb Conc. 33.5 g/dL (32.0-36.0); Mean Corpuscular Volume 84.9 fL (80.0-100.0); Monocytes # (auto) 0.3 uL; Monocytes % (auto) 14.1 % (0.0-12.0); Neutrophils # (auto) 1.4 uL; Nucleated Red Blood Cells % 0.2 %; Platelet Count (auto) 159 10^3/uL (140-450); Red Blood Cells 3.64 10^6/uL (4.0-5.20); Red Cell Distribution Width 14.1 % (11.8-14.3); White Blood Cell 2.4 10^3/uL (4.4-10.8)
[2019-07-24 06:12] LABS: Potassium 3.3 mmol/L (3.5-5.1)
[2019-07-24 06:16] VITALS: BP 121/78
[2019-07-24 06:19] LABS: Albumin 3.2 g/dL (3.4-5.0); BUN/Creatinine Ratio 8.5; Calcium 8.7 mg/dL (8.5-10.1)
[2019-07-24 06:22] LABS: Bilirubin, Total 0.5 mg/dL (0.2-1.0); Total Protein 7.7 g/dL (6.4-8.2)
[2019-07-24 09:50] VITALS: BP 121/74
[2019-07-24] MEDS: cefTRIAXone 1GM/50ML D5W 50 ML IV SCH (09:54)
[2019-07-24] MEDS: LEVETIRACETAM INJ 1,500 MG in D5W 5% 100 ML IV SCH ×2 (09:59→22:14)
--- NOTE | 2019-07-24 11:54 | NUR ---
OPENING SHIFT NOTE ASSUMED CARE OF PATIENT. PATIENT IS AWAKE AND ALERT. NO SOB OR SIGNS OF DISTRESS NOTED. SITTER AT BEDSIDE. INSTRUCTED ON POC AND TO CALL FOR HELP PRN. BED IN LOWEST POSITION WITH SIDE RAILS UP X2. SEIZURE PRECAUTIONS IN PLACE. WILL CONTINUE TO MONITOR Q1HR.
[2019-07-24] MEDS ORDERED: POTASSIUM EFFERVESENT TAB 25 MEQ PO ONE (12:00)
[2019-07-24] MEDS: SODIUM CHLORIDE 0.9% 1,000 ML IV SCH (12:26)
[2019-07-24 13:54] VITALS: BP 113/77
--- NOTE | 2019-07-24 16:30 | NUR ---
PATIENTS MOTHER CAME TO VISIT PATIENT. INFORMED HER OF DISCHARGE ORDER. MOTHER EXPRESSED CONCERN THAT PATIENT WAS OFF NORMAL MENTATION BASELINE. PAGED DR JACKSON. RECEIVED NO RESPONSE.
[2019-07-24 16:47] VITALS: BP 118/78
--- NOTE | 2019-07-24 17:30 | NUR ---
SPOKE WITH KYRA CHARGE NURSE AND LUZ IN [employer] ABOUT PATIENTS MOTHERS CONCERNS. CALLED HOSPITALIST. HOSPITALIST AGREED TO HOLD DISCHARGE UNTIL TOMORROW.
--- NOTE | 2019-07-24 19:00 | NUR ---
Opening Shift Note Assumed care of patient, awake and alert. No S/S of distress/SOB or pain. Instructed on POC and to call for assist PRN, will continue to monitor for changes Q1hr and PRN.
[2019-07-24] MEDS: OXcarbazepine 300 MG TAB PO SCH (21:46)
[2019-07-24] MEDS: lamoTRIgine 100 MG TAB PO SCH (21:46)
[2019-07-24 22:00] VITALS: BP 103/66
[2019-07-25] MEDS: SODIUM CHLORIDE 0.9% 1,000 ML IV SCH ×2 (00:30→15:28)
[2019-07-25 05:00] VITALS: BP 105/72
--- NOTE | 2019-07-25 08:00 | NUR ---
Received pt resting in bed, call light within reach, pt reports headache 04/04, will medicate pt, safety precautions in place, bed alarm on, will continue to monitor pt.
[2019-07-25] MEDS: cefTRIAXone 1GM/50ML D5W 50 ML IV SCH (08:26)
[2019-07-25] MEDS: ACETAMINOPHEN 650 mg PER 20 mL UD PO PRN (08:27)
[2019-07-25 09:00] VITALS: BP 125/77
[2019-07-25] MEDS: lamoTRIgine 100 MG TAB PO SCH ×2 (09:21→21:37)
[2019-07-25] MEDS: OXcarbazepine 300 MG TAB PO SCH ×2 (09:21→21:37)
[2019-07-25] MEDS: LEVETIRACETAM INJ 1,500 MG in D5W 5% 100 ML IV SCH (10:19)
--- NOTE | 2019-07-25 10:25 | NUR ---
Dr. Bryson / pharmaceutical process engineer at bed side to see pt, as per doctor pt is clear for discharge.
[2019-07-25 12:57] VITALS: BP 125/79
[2019-07-25 14:54] LABS: Basophils # (auto) 0 uL; Basophils % (auto) 1.1 % (0.0-2.0); Eosinophils # (auto) 0.2 uL; Eosinophils % (auto) 8.1 % (0.0-7.0); Hematocrit 34.8 % (36.0-46.0); Hemoglobin 11.5 g/dL (12.2-16.2); Lymphocytes # (auto) 0.7 uL; Lymphocytes % (auto) 29.3 % (10.0-50.0); Mean Corpuscular Hemoglobin 28.2 pg (28.0-32.0); Mean Corpuscular Volume 85.4 fL (80.0-100.0); Monocytes # (auto) 0.4 uL; Monocytes % (auto) 17.4 % (0.0-12.0); Neutrophils # (auto) 1.1 uL; Neutrophils % (auto) 44.1 % (37.0-80.0); Platelet Count (auto) 206 10^3/uL (140-450); Red Blood Cells 4.08 10^6/uL (4.0-5.20); Red Cell Distribution Width 14.4 % (11.8-14.3); White Blood Cell 2.5 10^3/uL (4.4-10.8)
[2019-07-25 15:17] LABS: Alanine Aminotransferase 64 U/L (13-56); Albumin 3.5 g/dL (3.4-5.0); Anion Gap 10 (5-15); Aspartate Aminotransferase 26 U/L (15-37); BUN/Creatinine Ratio 9.8; Blood Urea Nitrogen 6 mg/dL (7-18); Calcium 8.8 mg/dL (8.5-10.1); Carbon Dioxide 23 mmol/L (21-32); Chloride 104 mmol/L (98-107); GFR African American 140 mL/min; GFR Non-African American 115 mL/min; Glucose 111 mg/dL (74-106); Potassium 3.8 mmol/L (3.5-5.1); Sodium 137 mmol/L (136-145)
[2019-07-25 15:20] LABS: Alkaline Phosphatase 72 U/L (45-117); Bilirubin, Total 0.3 mg/dL (0.2-1.0); Total Protein 8.4 g/dL (6.4-8.2)
--- NOTE | 2019-07-25 15:53 | NUR ---
Nutrition Follow-up Notes: Wt.:70.9 kg today. Pt's successfully extubated (07/23/19), asleep, no immediate family member at bedside, no signs of distress noted during rounds this morning. Pt's currently on Chopped Fine Regular diet with adequate PO intake aeb 80% ave. consumed meals (x6) in last 2.5 days. Est. Needs: 1500 kcal to 1700 kcal (25-30 kcal/kgBW), 59 gms to 74 gms pro (0.8-1.0 gms/kgBW). Will continue to monitor pertinent labs and reassess nutrient need prn Labs: Gluc 111 H, BUN 6 L, ALT 64 H, Tpro 8.4 H. Skin: Deondre scale 13 mod risk, pt's skin tear on sacrum per portfolio analyst. GI: Pt had 1 BM this morning per portfolio analyst. PES: Altered nutrition related lab values r/t current/chronic medical condition aeb hypokalemia, low. renal labs, elev. LFTs, hypocalcemia and mild hypoalbuminemia Resolved: Increased nutrient needs r/t current chronic medical condition aeb intubated, sedated, mild hypoalbuminemia, NPO. Will continue to monitor PO intake, skin status, pertinent labs and weight trend. F/u in 3 to 5 days. Rec.: 1.) Continue close supervision during meals. 2.) If Albumin continues trending down, consider Prostat 1 pkt BID. 3.) Consider daily MVI with minerals and Asc acid 500 mgs BID prn. 4.) Refer to RD for further nutrition educ. and weight monitoring upon discharge. 5.) Continue current plan of care.
[2019-07-25 17:00] VITALS: BP 100/68
[2019-07-25] MEDS: LEVETIRACETAM 500 MG TAB PO SCH (21:37)
[2019-07-25 22:00] VITALS: BP 105/70
[2019-07-26] MEDS: SODIUM CHLORIDE 0.9% 1,000 ML IV SCH ×2 (01:30→13:32)
--- NOTE | 2019-07-26 04:30 | NUR ---
GILL Irvin attempted to remove patient's clifford with female LADIES UNDERWEAR OPERATOR at bedside as well but patient would not allow a male RN to perform the intervention. Patient has been resilient to clifford being removed in the past but patient allowed female RN "Olesya" to assist with removal of the clifford with another female LADIES UNDERWEAR OPERATOR at bedside as well. Patient's clifford was removed per MD orders. Patient tolerated intervention well with no discomfort or distress. RN to assess and monitor patient for independent voiding.
[2019-07-26 05:00] VITALS: BP 100/63
--- NOTE | 2019-07-26 07:10 | NUR ---
PT IN SUPINE, SLEEPING AT MOMENT, EFFORTLESS BREATHING ON ROOM AIR, NO S/S OF DISTRESS AT MOMENT, IV TO RIJ 3 LUMEN INFUSING WELL. BED LOCKED AND IN LOWEST POSITION, SZ PRECAUTIONS IN PLACE, SITTER AT BEDSIDE. WILL CONTINUE TO MONITOR.
[2019-07-26] MEDS: cefTRIAXone 1GM/50ML D5W 50 ML IV SCH (08:49)
[2019-07-26] MEDS: OXcarbazepine 300 MG TAB PO SCH (08:58)
[2019-07-26] MEDS: LEVETIRACETAM 500 MG TAB PO SCH (08:58)
[2019-07-26] MEDS: lamoTRIgine 100 MG TAB PO SCH (08:58)
--- NOTE | 2019-07-26 13:00 | NUR ---
PER DR. BURGOS, PT OK TO DC HOME. DC ORDERS IN. ATTEMPTS MADE TO CONTACT MOTHER JULISSA REGARDING DISCHARGE ORDERS, VOICEMAIL FULL.
--- NOTE | 2019-07-26 14:00 | NUR ---
COMPLETE HYGIENE CARE PROVIDED TO PT, ALL BED LINENS CHANGED. INTRAGLUTEAL FISSURE WOUND CARE PROVIDED. WOUND IS ASYMPTOMATIC, CLEANSED AREA AND APPLIED Z-GUARD. PT OUT OF BED, AMBULATORY WITH STAND BY ASSIST. WILL CONTINUE TO MONITOR.
--- NOTE | 2019-07-26 15:00 | NUR ---
SPOKE TO MOTHER JULISSA HARPER; PER MOTHER SHE WILL COME TO CAMPAIGN CONSULTANT PATIENT, TAXI VOUCHER PROCURED PER MOTHER'S REQUEST. AWAITING MOTHER FOR CAMPAIGN CONSULTANT.
--- NOTE | 2019-07-26 17:09 | NUR ---
DISCHARGE INSTRUCTIONS GIVEN TO PT'S MOTHER. MOTHER VERBALIZED UNDERSTANDING FOR PRESCRIPTION ORDERS AND FOLLOW UP APPOINTMENT, PER MOTHER PRESCRIPTIONS HAVE BEEN FILLED AND PROCURED BY HER. BEST PHARMACY CONFIRMATION. NEUROLOGIST AND PRIMARY CARE PROVIDER CONTACT INFORMATION PROVIDED. RIJ LINE DC'D, CATHETER INTACT, NO ACTIVE BLEEDING, SUTURES INTACT ON REMOVAL. TELE BOX REMOVED AND RETURNED TO TELE DEPT. EDUCATIONAL MATERIAL PROVIDED, ALL QUESTIONS AND CONCERNS ADDRESSED. PT SAFELY ESCORTED OUT OF UNIT, ACCOMPANIED BY MOTHER.
--- NOTE | 2019-07-26 17:10 | NUR ---
MRSA NARES SPECIMEN COLLECTED, SENT TO LAB.
== END 2019-07-26 17:30 | disposition home or self-care (01) | DRG 53 ==
LOC: ER 10:07 → EDBD 10:07 → TELE 10:08 → TELE-EAST 15:21 → ICU WEST 07-20 09:21 → TELE-WESTW 07-23 22:30
PROVIDERS: ADMIT Internal Medicine; ATTEND Internal Medicine Nephrology
PROC: 5A1945Z Respiratory Ventilation, 24-96 Consecutive Hours (ICD-10-PCS; principal; 2019-07-20)
PROC: 0BH17EZ Insertion of Endotracheal Airway into Trachea, Via Natural or Artificial Opening (ICD-10-PCS; 2019-07-20)
PROC: 02HV33Z Insertion of Infusion Device into Superior Vena Cava, Percutaneous Approach (ICD-10-PCS; 2019-07-20)
DX: G40.401 Other generalized epilepsy and epileptic syndromes, not intractable, with status epilepticus (principal); J96.00 Acute respiratory failure, unspecified whether with hypoxia or hypercapnia; J69.0 Pneumonitis due to inhalation of food and vomit; E44.0 Moderate protein-calorie malnutrition; D69.6 Thrombocytopenia, unspecified; R65.10 Systemic inflammatory response syndrome (SIRS) of non-infectious origin without acute organ dysfunction; F20.9 Schizophrenia, unspecified; I10 Essential (primary) hypertension; J98.11 Atelectasis; E87.6 Hypokalemia; D72.819 Decreased white blood cell count, unspecified; F17.200 Nicotine dependence, unspecified, uncomplicated; F79 Unspecified intellectual disabilities; D64.9 Anemia, unspecified; J44.9 Chronic obstructive pulmonary disease, unspecified; Z59.0 Homelessness; Z79.899 Other long term (current) drug therapy; Z91.19 Patient's noncompliance with other medical treatment and regimen
CPT/HCPCS: 36415; 36600; 70450; 71045; 80048; 80053; 81001; 81025; 82805; 82962; 83605; 84132; 84443; 84484; 85025; 85610; 85730; 87070; 87077; 87081; 87086; 87186; 87205; 94002; 94003; 94640; 95819; 96361; 96374; 99291; G0378; J0330; J0696; J2001; J2250; J2704; J3480; J7060

== ENCOUNTER 2019-10-13 16:19 | Emergency (ER) | payer MEDICAID, OTHER ==
[~2019-10-13] VITALS: Ht 134.6 cm; Wt 54.4 kg
[2019-10-13 17:05] VITALS: BP 133/84
== END 2019-10-13 22:15 | disposition left against medical advice (07) ==
LOC: ER 16:26
DX: Z76.0 Encounter for issue of repeat prescription (principal); Z53.21 Procedure and treatment not carried out due to patient leaving prior to being seen by health care provider

== ENCOUNTER 2020-02-27 01:52 | Inpatient (IN) | payer MEDICAID, OTHER ==
[~2020-02-27] VITALS: Ht 152.4 cm; Wt 68.4 kg
[2020-02-27] MEDS ORDERED: levETIRAcetam 500 MG/5ML INJ IV ONE (04:14)
[2020-02-27 04:17] LABS: INR 1.07 (0.9-1.15); Partial Thromboplastin Time 27.9 sec (23.64-32.05)
[2020-02-27 04:20] LABS: Albumin 2.7 g/dL (3.4-5.0); Potassium 3.8 mmol/L (3.5-5.1)
[2020-02-27 04:23] LABS: BUN/Creatinine Ratio 16.3; Bilirubin, Total 0.3 mg/dL (0.2-1.0); Total Protein 8.9 g/dL (6.4-8.2)
[2020-02-27 04:37] LABS: Urine Bacteria FEW /hpf (None Seen); Urine Blood TRACE /uL (Negative); Urine Specific Gravity 1.013 (1.001-1.035); Urine WBC <1 /hpf (0 - 5)
[2020-02-27 04:43] LABS: Hemoglobin 10.6 g/dL (12.2-16.2)
[2020-02-27 04:44] LABS: Hematocrit 32.8 % (36.0-46.0); Mean Corpuscular Hemoglobin 25.7 pg (28.0-32.0); Mean Corpuscular Hgb Conc. 32.5 g/dL (32.0-36.0); Mean Corpuscular Volume 79.2 fL (80.0-100.0); Platelet Count (auto) 129 10^3/uL (140-450); Red Blood Cells 4.13 10^6/uL (4.0-5.20)
[2020-02-27 04:50] LABS: Red Cell Distribution Width 20.3 % (11.8-14.3)
[2020-02-27 04:51] LABS: Basophils % (manual) 0 (0.0-2.0); Blast Cells 0; Metamyelocytes % 0; Myelocytes % 0; Promyelocytes % 0; Reactive Lymphocytes 0; White Blood Cell 1.9 10^3/uL (4.4-10.8)
[2020-02-27] MEDS ORDERED: cefTRIAXone 1GM/50ML D5W 50 ML IV ONE (06:30)
[2020-02-27 06:47] LABS: Band Neutrophils % (manual) 4; Eosinophils % (manual) 3 (0-7); Lymphocytes % (manual) 60 (10.0-50.0); Monocytes % (manual) 18 (0-12)
[2020-02-27] MEDS ORDERED: LEVE500T3 (07:29)
[2020-02-27] MEDS ORDERED: LAMO100T44 PO (07:29)
[2020-02-27] MEDS ORDERED: OXCA600T40 (07:29)
[2020-02-27 09:00] LABS: Alcohol, Urine < 3.0 mg/dL (0-10); Amphetamine Screen, Urine NEGATIVE (NEGATIVE); Barbiturate Scree,Urine NEGATIVE (NEGATIVE); Benzodiazephine Screen, Urine NEGATIVE (NEGATIVE); Cannabinoid Screen, Urine NEGATIVE (NEGATIVE); Cocaine Screen, Urine NEGATIVE (NEGATIVE); Opiate Scree,Urine NEGATIVE (NEGATIVE); Phencyclidine Screen, Urine NEGATIVE (NEGATIVE)
[2020-02-27] MEDS ORDERED: HYDROcodone-ACET 5/325MG TAB PO PRN (09:30)
[2020-02-27] MEDS ORDERED: LORazepam 2MG/ML-1ML VIAL IV PRN (09:30)
[2020-02-27] MEDS ORDERED: MORPHINE SULF INJ 2 MG/ML SYRINGE 1ML IV PRN ×2 (09:30)
[2020-02-27] MEDS ORDERED: NITROGLYCERIN 0.4 MG SL TAB SL PRN (09:30)
[2020-02-27] MEDS ORDERED: SODIUM CHLORIDE 0.9% 1,000 ML IV ONE (09:30)
[2020-02-27] MEDS: FAMOTIDINE 20 MG TAB PO SCH (10:20)
[2020-02-27] MEDS: IPRATROPIUM BROM 0.5 MG/2.5ML INH SOL NEB SCH ×2 (12:15→18:13)
[2020-02-27] MEDS: ALBUTEROL SULF 2.5 MG/0.5ML(0.5%) NEB SOLN NEB SCH ×2 (12:15→18:13)
[2020-02-27] MEDS: PIPERACILLIN-TAZOB 3.375GM 100 ML IV SCH ×2 (12:21→18:12)
[2020-02-27] MEDS: FILGRASTIM (TBO) 300 MCG/0.5 ML SYRG SC SCH (13:36)
[2020-02-27 14:04] VITALS: BP 111/72
[2020-02-27] MEDS ORDERED: ALBUTEROL SULF 2.5 MG/0.5ML(0.5%) NEB SOLN NEB PRN (16:15)
[2020-02-27] MEDS ORDERED: SORE THROAT SPRAY 6OZ BOTTLE MT PRN (16:15)
[2020-02-27] MEDS ORDERED: IPRATROPIUM BROM 0.5 MG/2.5ML INH SOL NEB PRN (16:15)
[2020-02-28 00:20] VITALS: BP 130/66
[2020-02-28] MEDS: PIPERACILLIN-TAZOB 3.375GM 100 ML IV SCH ×5 (00:52→23:31)
[2020-02-28 05:00] VITALS: BP 106/66
[2020-02-28 06:10] LABS: % Iron Saturation 7.7 % (15-50)
[2020-02-28 06:14] LABS: Albumin 2.7 g/dL (3.4-5.0); Calcium 8.6 mg/dL (8.5-10.1); Potassium 4.2 mmol/L (3.5-5.1)
[2020-02-28 06:18] LABS: BUN/Creatinine Ratio 12.2; Bilirubin, Total 0.7 mg/dL (0.2-1.0); Total Protein 9.4 g/dL (6.4-8.2)
[2020-02-28 06:26] LABS: Ferritin 105.5 ng/mL (10-322)
[2020-02-28 07:21] LABS: Basophils # (auto) 0.1 10 ^3/uL (0-0.2); Basophils % (auto) 0.6 % (0.0-2.0); Eosinophils # (auto) 0 10 ^3/uL (0-0.8); Eosinophils % (auto) 0.2 % (0.0-7.0); Hematocrit 35.2 % (36.0-46.0); Hemoglobin 11.6 g/dL (12.2-16.2); Lymphocytes # (auto) 0.5 10 ^3/uL (0.4-5.4); Lymphocytes % (auto) 5.3 % (10.0-50.0); Mean Corpuscular Volume 78.6 fL (80.0-100.0); Monocytes # (auto) 0.4 10 ^3/uL (0-1.3); Monocytes % (auto) 4.1 % (0.0-12.0); Neutrophils # (auto) 8.2 10 ^3/uL (1.6-8.6); Neutrophils % (auto) 89.8 % (37.0-80.0); Nucleated Red Blood Cells % 0.1 %; Platelet Count (auto) 142 10^3/uL (140-450); Red Blood Cells 4.48 10^6/uL (4.0-5.20); Red Cell Distribution Width 19.9 % (11.8-14.3); White Blood Cell 9.1 10^3/uL (4.4-10.8)
[2020-02-28 09:00] VITALS: BP 110/65
[2020-02-28 10:16] LABS: Hepatitis B Surface Antibody Negative
[2020-02-28] MEDS: FAMOTIDINE 20 MG TAB PO SCH (10:40)
[2020-02-28 10:54] LABS: Hepatitis A Total Antibody Positive
[2020-02-28] MEDS: FILGRASTIM (TBO) 300 MCG/0.5 ML SYRG SC SCH (11:18)
[2020-02-28] MEDS: ACETAMINOPHEN 500 MG TAB PO PRN ×2 (11:19→21:36)
[2020-02-28] MEDS: IPRATROPIUM BROM 0.5 MG/2.5ML INH SOL NEB SCH ×3 (11:21→17:54)
[2020-02-28] MEDS: ALBUTEROL SULF 2.5 MG/0.5ML(0.5%) NEB SOLN NEB SCH ×3 (11:21→17:54)
[2020-02-28 12:06] LABS: Hepatitis B Surface Antigen Negative (Negative)
[2020-02-28 12:07] LABS: Hepatitis B Core Total AB Negative; Hepatitis C Antibody Negative (Negative)
[2020-02-28 12:59] LABS: Basophils # (auto) 0 10 ^3/uL (0-0.2); Basophils % (auto) 0.6 % (0.0-2.0); Eosinophils # (auto) 0 10 ^3/uL (0-0.8); Monocytes # (auto) 0.4 10 ^3/uL (0-1.3); Nucleated Red Blood Cells % 0.2 %
[2020-02-28 13:00] VITALS: BP 111/72
[2020-02-28 13:01] LABS: Eosinophils % (auto) 1.2 % (0.0-7.0); Lymphocytes # (auto) 0.5 10 ^3/uL (0.4-5.4); Mean Corpuscular Hemoglobin 25.6 pg (28.0-32.0); Mean Corpuscular Hgb Conc. 32.3 g/dL (32.0-36.0); Mean Corpuscular Volume 79.3 fL (80.0-100.0); Monocytes % (auto) 8.7 % (0.0-12.0); Neutrophils # (auto) 3.1 10 ^3/uL (1.6-8.6); Neutrophils % (auto) 76.5 % (37.0-80.0); Platelet Count (auto) 252 10^3/uL (140-450); Red Blood Cells 4.28 10^6/uL (4.0-5.20); Red Cell Distribution Width 20.1 % (11.8-14.3); White Blood Cell 4.1 10^3/uL (4.4-10.8)
[2020-02-28 17:00] VITALS: BP 111/66
[2020-02-28 22:18] VITALS: BP 100/57
[2020-02-29 04:59] VITALS: BP 104/74
[2020-02-29] MEDS: PIPERACILLIN-TAZOB 3.375GM 100 ML IV SCH ×4 (06:05→23:48)
[2020-02-29 06:22] LABS: Mean Corpuscular Hemoglobin 25.9 pg (28.0-32.0); Red Blood Cells 4.12 10^6/uL (4.0-5.20); White Blood Cell 4.8 10^3/uL (4.4-10.8)
[2020-02-29 06:25] LABS: Hematocrit 32.4 % (36.0-46.0); Hemoglobin 10.7 g/dL (12.2-16.2); Mean Corpuscular Hgb Conc. 32.9 g/dL (32.0-36.0); Mean Corpuscular Volume 78.6 fL (80.0-100.0); Platelet Count (auto) 202 10^3/uL (140-450)
[2020-02-29 06:43] LABS: Potassium 3.8 mmol/L (3.5-5.1)
[2020-02-29] MEDS: IPRATROPIUM BROM 0.5 MG/2.5ML INH SOL NEB SCH ×3 (06:44→20:12)
[2020-02-29] MEDS: ALBUTEROL SULF 2.5 MG/0.5ML(0.5%) NEB SOLN NEB SCH ×3 (06:44→20:13)
[2020-02-29 06:51] LABS: Basophils % (manual) 0 (0.0-2.0); Blast Cells 0; Metamyelocytes % 0; Myelocytes % 0; Promyelocytes % 0; Reactive Lymphocytes 0; Red Cell Distribution Width 20.3 % (11.8-14.3)
[2020-02-29 07:04] LABS: Albumin 2.4 g/dL (3.4-5.0); Bilirubin, Total 0.4 mg/dL (0.2-1.0); Calcium 8.4 mg/dL (8.5-10.1); Magnesium 2.3 mg/dL (1.6-2.6); Total Protein 8.7 g/dL (6.4-8.2)
[2020-02-29 07:06] LABS: Immunoglobulin G, Serum 4147 mg/dL (586-1602)
[2020-02-29 07:40] LABS: Band Neutrophils % (manual) 2; Eosinophils % (manual) 6 (0-7); Lymphocytes % (manual) 11 (10.0-50.0); Monocytes % (manual) 11 (0-12)
[2020-02-29 09:00] VITALS: BP 102/55
[2020-02-29] MEDS: FAMOTIDINE 20 MG TAB PO SCH (10:43)
[2020-02-29] MEDS: FILGRASTIM (TBO) 300 MCG/0.5 ML SYRG SC SCH (10:44)
[2020-02-29 13:00] VITALS: BP 103/57
[2020-02-29 17:00] VITALS: BP 94/59
[2020-02-29] MEDS: levETIRAcetam 500 MG TAB PO SCH (19:32)
[2020-02-29 22:00] VITALS: BP 101/62
[2020-02-29] MEDS ORDERED: levETIRAcetam 500 MG TAB PO SCH (22:00)
[2020-02-29] MEDS: lamoTRIgine 100 MG TAB PO SCH (22:25)
[2020-02-29] MEDS: OXcarbazepine 300 MG TAB PO SCH (22:26)
[2020-03-01] VITALS (8 sets, daily range): BP systolic 93–100; BP diastolic 55–72
[2020-03-01 05:39] LABS: Hemoglobin 10.1 g/dL (12.2-16.2)
[2020-03-01] MEDS: PIPERACILLIN-TAZOB 3.375GM 100 ML IV SCH ×2 (05:41→11:36)
[2020-03-01 05:42] LABS: Hematocrit 31.1 % (36.0-46.0)
[2020-03-01 06:12] LABS: Albumin 2.3 g/dL (3.4-5.0); Bilirubin, Direct 0.2 mg/dL (0-0.2); Bilirubin, Total 0.3 mg/dL (0.2-1.0); Total Protein 8.2 g/dL (6.4-8.2)
[2020-03-01] MEDS: IPRATROPIUM BROM 0.5 MG/2.5ML INH SOL NEB SCH ×3 (06:46→19:17)
[2020-03-01] MEDS: ALBUTEROL SULF 2.5 MG/0.5ML(0.5%) NEB SOLN NEB SCH ×3 (06:46→19:17)
[2020-03-01] MEDS: levETIRAcetam 500 MG TAB PO SCH ×2 (10:06→21:49)
[2020-03-01] MEDS: FAMOTIDINE 20 MG TAB PO SCH (10:07)
[2020-03-01] MEDS: lamoTRIgine 100 MG TAB PO SCH ×2 (10:07→21:48)
[2020-03-01] MEDS: OXcarbazepine 300 MG TAB PO SCH ×2 (10:07→21:49)
[2020-03-01] MEDS: FILGRASTIM (TBO) 300 MCG/0.5 ML SYRG SC SCH (10:08)
[2020-03-01] MEDS ORDERED: levoFLOXacin 250 MG TAB PO ONE (13:30)
[2020-03-01] MEDS: ONDANSETRON HCL 4 MG/2 ML VIAL IV PRN ×2 (14:52→19:58)
[2020-03-02] VITALS (7 sets, daily range): BP systolic 98–105; BP diastolic 65–72
[2020-03-02 05:10] LABS: Hemoglobin 9.8 g/dL (12.2-16.2); White Blood Cell 4.9 10^3/uL (4.4-10.8)
[2020-03-02 05:14] LABS: Hematocrit 29.8 % (36.0-46.0); Mean Corpuscular Hemoglobin 25.9 pg (28.0-32.0); Mean Corpuscular Hgb Conc. 32.8 g/dL (32.0-36.0); Platelet Count (auto) 224 10^3/uL (140-450); Red Blood Cells 3.77 10^6/uL (4.0-5.20)
[2020-03-02 05:20] LABS: Red Cell Distribution Width 20.4 % (11.8-14.3)
[2020-03-02 05:22] LABS: Basophils % (manual) 0 (0.0-2.0); Blast Cells 0; Metamyelocytes % 0; Myelocytes % 0; Promyelocytes % 0; Reactive Lymphocytes 0
[2020-03-02 05:41] LABS: Albumin 2.4 g/dL (3.4-5.0); Bilirubin, Direct 0.1 mg/dL (0-0.2); Bilirubin, Total 0.3 mg/dL (0.2-1.0); Total Protein 8.2 g/dL (6.4-8.2)
[2020-03-02] MEDS: IPRATROPIUM BROM 0.5 MG/2.5ML INH SOL NEB SCH ×3 (06:04→18:15)
[2020-03-02] MEDS: ALBUTEROL SULF 2.5 MG/0.5ML(0.5%) NEB SOLN NEB SCH ×3 (06:04→18:15)
[2020-03-02 06:17] LABS: Band Neutrophils % (manual) 19; Eosinophils % (manual) 1 (0-7); Lymphocytes % (manual) 14 (10.0-50.0); Monocytes % (manual) 6 (0-12)
[2020-03-02] MEDS: ONDANSETRON HCL 4 MG/2 ML VIAL IV PRN (08:04)
[2020-03-02] MEDS ORDERED: levoFLOXacin 250 MG TAB PO SCH (10:00)
[2020-03-02] MEDS: levETIRAcetam 500 MG TAB PO SCH ×2 (10:11→22:06)
[2020-03-02] MEDS: lamoTRIgine 100 MG TAB PO SCH ×2 (10:11→22:04)
[2020-03-02] MEDS: OXcarbazepine 300 MG TAB PO SCH ×2 (10:12→22:05)
[2020-03-02] MEDS: FAMOTIDINE 20 MG TAB PO SCH (10:12)
[2020-03-02] MEDS ORDERED: DOCUSATE SOD 100 MG CAP PO ONE (11:00)
[2020-03-02] MEDS ORDERED: PANTOPRAZOLE 40 MG TAB PO ONE (11:00)
[2020-03-02] MEDS ORDERED: LACTULOSE 20Gm/30ML SOLN PO PRN (11:00)
[2020-03-02] MEDS: SODIUM CHLORIDE 0.9% 1,000 ML IV SCH (12:27)
[2020-03-02] MEDS: DOCUSATE SOD 100 MG CAP PO SCH (22:06)
[2020-03-03] MEDS: SODIUM CHLORIDE 0.9% 1,000 ML IV SCH ×2 (03:19→20:20)
[2020-03-03 05:05] VITALS: BP 99/65
[2020-03-03] MEDS: ALBUTEROL SULF 2.5 MG/0.5ML(0.5%) NEB SOLN NEB SCH ×4 (06:20→18:37)
[2020-03-03] MEDS: IPRATROPIUM BROM 0.5 MG/2.5ML INH SOL NEB SCH ×4 (06:20→18:37)
[2020-03-03 06:31] LABS: Hemoglobin 9.5 g/dL (12.2-16.2)
[2020-03-03 06:32] LABS: Potassium 3.8 mmol/L (3.5-5.1)
[2020-03-03 06:33] LABS: Hematocrit 28.9 % (36.0-46.0)
[2020-03-03 06:46] LABS: Albumin 2.5 g/dL (3.4-5.0); BUN/Creatinine Ratio 14.3; Bilirubin, Total 0.3 mg/dL (0.2-1.0); Calcium 8.1 mg/dL (8.5-10.1); Total Protein 8.2 g/dL (6.4-8.2)
[2020-03-03 08:00] VITALS: BP_SYST 105; BP_SYST 99; BP_DIAS 66
[2020-03-03] MEDS ORDERED: IOHEXOL 350 MG/ML 100ML IJ ONE (10:32)
[2020-03-03] MEDS: levoFLOXacin 750MG 150 ML IV SCH (11:08)
[2020-03-03] MEDS: levETIRAcetam 500 MG TAB PO SCH ×2 (11:09→21:51)
[2020-03-03] MEDS: lamoTRIgine 100 MG TAB PO SCH ×2 (11:09→21:51)
[2020-03-03] MEDS: PANTOPRAZOLE 40 MG TAB PO SCH (11:09)
[2020-03-03] MEDS: OXcarbazepine 300 MG TAB PO SCH ×2 (11:09→21:52)
[2020-03-03] MEDS: DOCUSATE SOD 100 MG CAP PO SCH ×2 (11:10→21:51)
[2020-03-03 12:00] VITALS: BP 116/77
[2020-03-03] MEDS ORDERED: IRON SUCROSE COMPLEX 200 MG in SODIUM CHL 0.9% 100 ML IV ONE (16:30)
[2020-03-03 17:00] VITALS: BP 116/71
[2020-03-03 20:00] VITALS: BP 105/66
[2020-03-03 22:00] VITALS: BP 127/69
[2020-03-04 05:36] VITALS: BP 109/66
[2020-03-04 06:02] LABS: Hemoglobin 10.1 g/dL (12.2-16.2)
[2020-03-04 06:33] LABS: Potassium 3.5 mmol/L (3.5-5.1)
[2020-03-04] MEDS: ALBUTEROL SULF 2.5 MG/0.5ML(0.5%) NEB SOLN NEB SCH ×3 (06:40→18:31)
[2020-03-04] MEDS: IPRATROPIUM BROM 0.5 MG/2.5ML INH SOL NEB SCH ×3 (06:40→18:31)
[2020-03-04 06:48] LABS: Albumin 2.7 g/dL (3.4-5.0); Bilirubin, Direct 0.2 mg/dL (0-0.2); Bilirubin, Total 0.4 mg/dL (0.2-1.0); Magnesium 2.3 mg/dL (1.6-2.6); Total Protein 8.9 g/dL (6.4-8.2)
[2020-03-04 08:32] VITALS: BP 125/70
[2020-03-04] MEDS: levETIRAcetam 500 MG TAB PO SCH ×2 (10:25→21:22)
[2020-03-04] MEDS: PANTOPRAZOLE 40 MG TAB PO SCH (10:25)
[2020-03-04] MEDS: predniSONE 5 MG TAB PO SCH (10:25)
[2020-03-04] MEDS: lamoTRIgine 100 MG TAB PO SCH ×2 (10:25→21:22)
[2020-03-04] MEDS: DOCUSATE SOD 100 MG CAP PO SCH ×2 (10:25→21:22)
[2020-03-04] MEDS: levoFLOXacin 750MG 150 ML IV SCH (10:26)
[2020-03-04] MEDS: OXcarbazepine 300 MG TAB PO SCH ×2 (11:29→21:21)
[2020-03-04 13:00] VITALS: BP 124/73
[2020-03-04 13:24] VITALS: BP 125/70
[2020-03-04] MEDS: ONDANSETRON HCL 4 MG/2 ML VIAL IV PRN ×2 (13:42→22:39)
[2020-03-04] MEDS: SODIUM CHLORIDE 0.9% 1,000 ML IV SCH ×2 (13:42→15:00)
[2020-03-04] MEDS: IRON SUCROSE COMPLEX 200 MG in SODIUM CHL 0.9% 100 ML IV SCH (14:40)
[2020-03-04 17:00] VITALS: BP 123/74
[2020-03-04 22:00] VITALS: BP 119/76
[2020-03-05] MEDS: ACETAMINOPHEN 500 MG TAB PO PRN (00:09)
[2020-03-05] MEDS ORDERED: TEMAZEPAM 15 MG CAP PO ONE (00:30)
[2020-03-05] MEDS: OXcarbazepine 300 MG TAB PO SCH ×3 (04:01→19:56)
[2020-03-05] MEDS: ONDANSETRON HCL 4 MG/2 ML VIAL IV PRN (04:01)
[2020-03-05 05:00] VITALS: BP 117/78
[2020-03-05] MEDS: ALBUTEROL SULF 2.5 MG/0.5ML(0.5%) NEB SOLN NEB SCH ×3 (06:19→19:23)
[2020-03-05] MEDS: IPRATROPIUM BROM 0.5 MG/2.5ML INH SOL NEB SCH ×3 (06:19→19:23)
[2020-03-05 08:00] VITALS: BP 112/76
[2020-03-05] MEDS: PANTOPRAZOLE 40 MG TAB PO SCH (10:09)
[2020-03-05] MEDS: levoFLOXacin 750MG 150 ML IV SCH (10:09)
[2020-03-05] MEDS: predniSONE 5 MG TAB PO SCH (10:09)
[2020-03-05] MEDS: levETIRAcetam 500 MG TAB PO SCH ×2 (10:09→21:58)
[2020-03-05] MEDS: lamoTRIgine 100 MG TAB PO SCH ×2 (10:09→21:58)
[2020-03-05] MEDS: DOCUSATE SOD 100 MG CAP PO SCH ×2 (10:09→21:58)
[2020-03-05 12:30] VITALS: BP 122/80
[2020-03-05] MEDS ORDERED: MIDAZOLAM HCL 1MG/1ML-2 ML VIAL ONE ×2 (14:04→14:06)
[2020-03-05] MEDS ORDERED: diphenhdrAMINE HCL 50 MG/1 ML VL ONE (14:05)
[2020-03-05] MEDS ORDERED: GLYCOPYRROLATE 0.2 MG/ML 1ML VIAL ONE (14:05)
[2020-03-05] MEDS ORDERED: KETAMINE HCL 10 ML ONE (14:07)
[2020-03-05] MEDS ORDERED: PROPOFOL 10 MG/ML 20 ML IV ONE (14:11)
[2020-03-05] MEDS ORDERED: ONDANSETRON HCL 4 MG/2 ML VIAL IV PRN (14:45)
[2020-03-05] MEDS ORDERED: NALOXONE HCL 0.4 MG/ML VIAL IV PRN (14:45)
[2020-03-05] MEDS ORDERED: HYDROmorphone HCL 2 MG/ML VL IV PRN (14:45)
[2020-03-05 15:16] VITALS: BP 114/74
[2020-03-05] MEDS: IRON SUCROSE COMPLEX 200 MG in SODIUM CHL 0.9% 100 ML IV SCH (15:20)
[2020-03-05] MEDS: SODIUM CHLORIDE 0.9% 1,000 ML IV SCH (15:20)
[2020-03-05 17:00] VITALS: BP 108/69
[2020-03-05 21:51] VITALS: BP 105/62
[2020-03-06] MEDS: OXcarbazepine 300 MG TAB PO SCH ×3 (03:40→21:15)
[2020-03-06] MEDS: ACETAMINOPHEN 500 MG TAB PO PRN (04:26)
[2020-03-06 04:57] VITALS: BP 125/82
[2020-03-06 05:58] LABS: Hemoglobin 10.6 g/dL (12.2-16.2)
[2020-03-06 06:01] LABS: Hematocrit 32.7 % (36.0-46.0); Mean Corpuscular Hemoglobin 25.6 pg (28.0-32.0); Mean Corpuscular Hgb Conc. 32.4 g/dL (32.0-36.0); Mean Corpuscular Volume 78.9 fL (80.0-100.0); Platelet Count (auto) 195 10^3/uL (140-450); Red Blood Cells 4.14 10^6/uL (4.0-5.20)
[2020-03-06 06:15] LABS: Albumin 2.6 g/dL (3.4-5.0)
[2020-03-06] MEDS: ALBUTEROL SULF 2.5 MG/0.5ML(0.5%) NEB SOLN NEB SCH ×3 (06:19→18:30)
[2020-03-06] MEDS: IPRATROPIUM BROM 0.5 MG/2.5ML INH SOL NEB SCH ×3 (06:19→18:30)
[2020-03-06 06:20] LABS: Bilirubin, Total 0.4 mg/dL (0.2-1.0); Total Protein 8.3 g/dL (6.4-8.2)
[2020-03-06 06:45] LABS: BUN/Creatinine Ratio 7.5
[2020-03-06 07:12] LABS: Red Cell Distribution Width 20.3 % (11.8-14.3)
[2020-03-06 07:17] LABS: White Blood Cell 1.6 10^3/uL (4.4-10.8)
[2020-03-06 07:18] LABS: Band Neutrophils % (manual) 0; Basophils % (manual) 0 (0.0-2.0); Blast Cells 0; Promyelocytes % 0; Reactive Lymphocytes 0
[2020-03-06 07:57] LABS: Eosinophils % (manual) 5 (0-7); Lymphocytes % (manual) 33 (10.0-50.0); Metamyelocytes % 1; Monocytes % (manual) 8 (0-12); Myelocytes % 3
[2020-03-06 09:00] VITALS: BP 115/73
[2020-03-06] MEDS: PANTOPRAZOLE 40 MG TAB PO SCH (09:43)
[2020-03-06] MEDS: DOCUSATE SOD 100 MG CAP PO SCH ×2 (09:43→21:44)
[2020-03-06] MEDS: predniSONE 5 MG TAB PO SCH (09:43)
[2020-03-06] MEDS: levETIRAcetam 500 MG TAB PO SCH ×2 (09:43→21:45)
[2020-03-06] MEDS: lamoTRIgine 100 MG TAB PO SCH ×2 (09:44→21:44)
[2020-03-06] MEDS: levoFLOXacin 750MG 150 ML IV SCH (09:44)
[2020-03-06] MEDS: IRON SUCROSE COMPLEX 200 MG in SODIUM CHL 0.9% 100 ML IV SCH (12:10)
[2020-03-06 13:00] VITALS: BP 115/68
[2020-03-06] MEDS ORDERED: POTASSIUM CHL 20 Meq TABLET PO ONE (14:30)
[2020-03-06 15:02] LABS: Basophils # (auto) 0 10 ^3/uL (0-0.2); Eosinophils # (auto) 0 10 ^3/uL (0-0.8); Lymphocytes # (auto) 0.2 10 ^3/uL (0.4-5.4); Monocytes # (auto) 0.2 10 ^3/uL (0-1.3); Red Blood Cells 4.16 10^6/uL (4.0-5.20)
[2020-03-06 15:04] LABS: Basophils % (auto) 0.4 % (0.0-2.0); Hematocrit 33.2 % (36.0-46.0); Hemoglobin 10.6 g/dL (12.2-16.2); Lymphocytes % (auto) 12.8 % (10.0-50.0); Mean Corpuscular Hemoglobin 25.5 pg (28.0-32.0); Mean Corpuscular Hgb Conc. 31.9 g/dL (32.0-36.0); Mean Corpuscular Volume 79.9 fL (80.0-100.0); Monocytes % (auto) 12.7 % (0.0-12.0); Neutrophils # (auto) 1.3 10 ^3/uL (1.6-8.6); Neutrophils % (auto) 73.1 % (37.0-80.0); Nucleated Red Blood Cells % 0.2 %; Platelet Count (auto) 204 10^3/uL (140-450)
[2020-03-06] MEDS: SODIUM CHLORIDE 0.9% 1,000 ML IV SCH (15:15)
[2020-03-06 15:16] LABS: Red Cell Distribution Width 20.1 % (11.8-14.3); White Blood Cell 1.8 10^3/uL (4.4-10.8)
[2020-03-06] MEDS: ONDANSETRON HCL 4 MG/2 ML VIAL IV PRN (16:04)
[2020-03-06] MEDS: SUCRALFATE 1 GM TAB PO SCH ×2 (16:07→21:44)
[2020-03-06 17:00] VITALS: BP 117/79
[2020-03-06] MEDS: FERROUS SULFATE 325 MG TAB PO SCH (18:03)
[2020-03-06 22:00] VITALS: BP 121/76
[2020-03-07] MEDS: OXcarbazepine 300 MG TAB PO SCH ×3 (04:21→19:00)
[2020-03-07 05:21] VITALS: BP 118/76
[2020-03-07] MEDS: IPRATROPIUM BROM 0.5 MG/2.5ML INH SOL NEB SCH ×3 (06:09→18:41)
[2020-03-07] MEDS: ALBUTEROL SULF 2.5 MG/0.5ML(0.5%) NEB SOLN NEB SCH ×3 (06:09→18:41)
[2020-03-07 06:15] LABS: Mean Corpuscular Hemoglobin 26.1 pg (28.0-32.0)
[2020-03-07 06:18] LABS: Hematocrit 30.6 % (36.0-46.0); Hemoglobin 10.1 g/dL (12.2-16.2); Platelet Count (auto) 206 10^3/uL (140-450); Red Blood Cells 3.88 10^6/uL (4.0-5.20)
[2020-03-07] MEDS: SUCRALFATE 1 GM TAB PO SCH ×4 (06:35→22:09)
[2020-03-07 06:37] LABS: Potassium 3.2 mmol/L (3.5-5.1)
[2020-03-07 06:48] LABS: Albumin 2.4 g/dL (3.4-5.0); Bilirubin, Direct 0.2 mg/dL (0-0.2); Bilirubin, Total 0.4 mg/dL (0.2-1.0); Calcium 7.8 mg/dL (8.5-10.1); Total Protein 7.6 g/dL (6.4-8.2)
[2020-03-07 06:51] LABS: % Iron Saturation 52.9 % (15-50)
[2020-03-07 06:59] LABS: Red Cell Distribution Width 20.6 % (11.8-14.3)
[2020-03-07 07:01] LABS: White Blood Cell 1.2 10^3/uL (4.4-10.8)
[2020-03-07 07:02] LABS: Band Neutrophils % (manual) 0; Basophils % (manual) 0 (0.0-2.0); Blast Cells 0; Metamyelocytes % 0; Promyelocytes % 0; Reactive Lymphocytes 0
[2020-03-07 07:30] LABS: Eosinophils % (manual) 3 (0-7); Lymphocytes % (manual) 40 (10.0-50.0); Monocytes % (manual) 5 (0-12); Myelocytes % 2
[2020-03-07 08:39] VITALS: BP 121/77
[2020-03-07] MEDS: predniSONE 5 MG TAB PO SCH (09:19)
[2020-03-07] MEDS: PANTOPRAZOLE 40 MG TAB PO SCH (09:19)
[2020-03-07] MEDS: FERROUS SULFATE 325 MG TAB PO SCH ×2 (09:19→17:53)
[2020-03-07] MEDS: DOCUSATE SOD 100 MG CAP PO SCH ×2 (09:19→22:09)
[2020-03-07] MEDS: levETIRAcetam 500 MG TAB PO SCH ×2 (09:20→22:10)
[2020-03-07] MEDS: lamoTRIgine 100 MG TAB PO SCH ×2 (09:20→22:09)
[2020-03-07] MEDS: levoFLOXacin 750MG 150 ML IV SCH (09:20)
[2020-03-07] MEDS ORDERED: POTASSIUM CHL 20 Meq TABLET PO ONE (10:45)
[2020-03-07] MEDS ORDERED: GELATIN 1 SPONGE SIZE 50 TOP ONE (11:00)
[2020-03-07] MEDS ORDERED: LIDOCAINE 2%HCL (LOCAL ANESTH.) INJ 20ML MDV ONE (11:00)
[2020-03-07] MEDS: FILGRASTIM (TBO) 300 MCG/0.5 ML SYRG SC SCH (11:39)
[2020-03-07] MEDS: ONDANSETRON HCL 4 MG/2 ML VIAL IV PRN (11:41)
[2020-03-07 13:00] VITALS: BP 102/52
[2020-03-07] MEDS ORDERED: MIDAZOLAM HCL 1MG/1ML-2 ML VIAL ONE (13:31)
[2020-03-07] MEDS ORDERED: fentaNYL CITRATE 100 MCG/2 ML VL ONE (13:31)
[2020-03-07 14:29] VITALS: BP 121/77
[2020-03-07] MEDS ORDERED: MIDAZOLAM HCL 1MG/1ML-2 ML VIAL IV ONE (14:30)
[2020-03-07] MEDS ORDERED: fentaNYL CITRATE 100 MCG/2 ML VL IV ONE (14:30)
[2020-03-07] MEDS: SODIUM CHLORIDE 0.9% 1,000 ML IV SCH (15:36)
[2020-03-07 16:44] VITALS: BP 107/68
[2020-03-07 22:00] VITALS: BP 106/64
[2020-03-08 05:00] VITALS: BP 105/70
[2020-03-08] MEDS: IPRATROPIUM BROM 0.5 MG/2.5ML INH SOL NEB SCH ×2 (06:29→11:38)
[2020-03-08] MEDS: ALBUTEROL SULF 2.5 MG/0.5ML(0.5%) NEB SOLN NEB SCH ×2 (06:29→11:38)
[2020-03-08] MEDS: SUCRALFATE 1 GM TAB PO SCH ×4 (06:32→22:28)
[2020-03-08] MEDS: FERROUS SULFATE 325 MG TAB PO SCH ×2 (08:16→17:15)
[2020-03-08 08:19] LABS: Basophils # (auto) 0 10 ^3/uL (0-0.2); Basophils % (auto) 0.3 % (0.0-2.0); Eosinophils # (auto) 0.1 10 ^3/uL (0-0.8); Hemoglobin 10.5 g/dL (12.2-16.2); Lymphocytes # (auto) 0.4 10 ^3/uL (0.4-5.4); Mean Corpuscular Hemoglobin 26.1 pg (28.0-32.0); Monocytes # (auto) 0.2 10 ^3/uL (0-1.3); Neutrophils # (auto) 7.2 10 ^3/uL (1.6-8.6); Red Blood Cells 4.03 10^6/uL (4.0-5.20); White Blood Cell 7.9 10^3/uL (4.4-10.8)
[2020-03-08 08:21] LABS: Eosinophils % (auto) 0.8 % (0.0-7.0); Lymphocytes % (auto) 5.3 % (10.0-50.0); Mean Corpuscular Hgb Conc. 32.8 g/dL (32.0-36.0); Mean Corpuscular Volume 79.5 fL (80.0-100.0); Monocytes % (auto) 2.8 % (0.0-12.0); Neutrophils % (auto) 90.8 % (37.0-80.0); Nucleated Red Blood Cells % 0.4 %; Platelet Count (auto) 137 10^3/uL (140-450); Red Cell Distribution Width 19.9 % (11.8-14.3)
[2020-03-08 08:40] LABS: Albumin 2.4 g/dL (3.4-5.0); BUN/Creatinine Ratio 7.4; Calcium 7.7 mg/dL (8.5-10.1); Potassium 3.6 mmol/L (3.5-5.1)
[2020-03-08 08:43] LABS: Bilirubin, Total 0.7 mg/dL (0.2-1.0); Total Protein 7.7 g/dL (6.4-8.2)
[2020-03-08 09:00] VITALS: BP 110/70
[2020-03-08] MEDS: levoFLOXacin 750MG 150 ML IV SCH (10:08)
[2020-03-08] MEDS: FILGRASTIM (TBO) 300 MCG/0.5 ML SYRG SC SCH (10:10)
[2020-03-08] MEDS: predniSONE 5 MG TAB PO SCH (10:11)
[2020-03-08] MEDS: levETIRAcetam 500 MG TAB PO SCH ×2 (10:11→22:28)
[2020-03-08] MEDS: OXcarbazepine 300 MG TAB PO SCH ×2 (10:11→22:28)
[2020-03-08] MEDS: lamoTRIgine 100 MG TAB PO SCH ×2 (10:12→22:28)
[2020-03-08] MEDS: DOCUSATE SOD 100 MG CAP PO SCH ×2 (10:12→22:28)
[2020-03-08] MEDS: PANTOPRAZOLE 40 MG TAB PO SCH (10:14)
[2020-03-08] MEDS: ONDANSETRON HCL 4 MG/2 ML VIAL IV PRN (12:01)
[2020-03-08 13:00] VITALS: BP 107/67
[2020-03-08 18:14] VITALS: BP 123/76
[2020-03-08 22:00] VITALS: BP 110/66
[2020-03-09 05:00] VITALS: BP 111/72
[2020-03-09 06:47] LABS: Basophils # (auto) 0 10 ^3/uL (0-0.2); Eosinophils # (auto) 0.1 10 ^3/uL (0-0.8); Eosinophils % (auto) 1.4 % (0.0-7.0); Lymphocytes # (auto) 0.3 10 ^3/uL (0.4-5.4); Monocytes # (auto) 0.2 10 ^3/uL (0-1.3)
[2020-03-09 06:53] LABS: Basophils % (auto) 0.4 % (0.0-2.0); Hematocrit 32.9 % (36.0-46.0); Hemoglobin 10.7 g/dL (12.2-16.2); Lymphocytes % (auto) 4.6 % (10.0-50.0); Mean Corpuscular Hemoglobin 26.2 pg (28.0-32.0); Mean Corpuscular Hgb Conc. 32.7 g/dL (32.0-36.0); Mean Corpuscular Volume 80.1 fL (80.0-100.0); Monocytes % (auto) 2.9 % (0.0-12.0); Neutrophils # (auto) 6.6 10 ^3/uL (1.6-8.6); Neutrophils % (auto) 90.7 % (37.0-80.0); Platelet Count (auto) 168 10^3/uL (140-450); White Blood Cell 7.2 10^3/uL (4.4-10.8)
[2020-03-09] MEDS: SUCRALFATE 1 GM TAB PO SCH ×4 (06:53→21:44)
[2020-03-09 06:58] LABS: Red Cell Distribution Width 20.6 % (11.8-14.3)
[2020-03-09] MEDS: FERROUS SULFATE 325 MG TAB PO SCH ×2 (08:03→17:58)
[2020-03-09 09:00] VITALS: BP 105/68
[2020-03-09] MEDS: levETIRAcetam 500 MG TAB PO SCH ×2 (10:07→21:44)
[2020-03-09] MEDS: lamoTRIgine 100 MG TAB PO SCH ×2 (10:07→21:44)
[2020-03-09] MEDS: DOCUSATE SOD 100 MG CAP PO SCH ×2 (10:07→21:44)
[2020-03-09] MEDS: predniSONE 5 MG TAB PO SCH (10:07)
[2020-03-09] MEDS: OXcarbazepine 300 MG TAB PO SCH ×2 (10:08→21:44)
[2020-03-09] MEDS: PANTOPRAZOLE 40 MG TAB PO SCH (10:08)
[2020-03-09] MEDS: FILGRASTIM (TBO) 300 MCG/0.5 ML SYRG SC SCH (11:00)
[2020-03-09 17:00] VITALS: BP 103/69
[2020-03-09 22:00] VITALS: BP 115/79
[2020-03-10 06:00] VITALS: BP 100/56
[2020-03-10] MEDS: SUCRALFATE 1 GM TAB PO SCH ×2 (06:32→11:15)
[2020-03-10 07:55] LABS: Hematocrit 33.6 % (36.0-46.0); Mean Corpuscular Hemoglobin 26.3 pg (28.0-32.0); Mean Corpuscular Hgb Conc. 32.9 g/dL (32.0-36.0); Mean Corpuscular Volume 79.9 fL (80.0-100.0); Platelet Count (auto) 162 10^3/uL (140-450); Red Blood Cells 4.21 10^6/uL (4.0-5.20); White Blood Cell 4.6 10^3/uL (4.4-10.8)
[2020-03-10 08:00] VITALS: BP 100/58
[2020-03-10 08:03] LABS: Red Cell Distribution Width 20.5 % (11.8-14.3)
[2020-03-10 08:04] LABS: Basophils % (manual) 0 (0.0-2.0); Blast Cells 0; Metamyelocytes % 0; Myelocytes % 0; Promyelocytes % 0; Reactive Lymphocytes 0
[2020-03-10] MEDS: FERROUS SULFATE 325 MG TAB PO SCH (08:20)
[2020-03-10 08:28] LABS: Band Neutrophils % (manual) 5; Eosinophils % (manual) 4 (0-7); Lymphocytes % (manual) 16 (10.0-50.0); Monocytes % (manual) 3 (0-12)
[2020-03-10 09:00] VITALS: BP 100/58
[2020-03-10] MEDS: predniSONE 5 MG TAB PO SCH (09:47)
[2020-03-10] MEDS: levETIRAcetam 500 MG TAB PO SCH (09:47)
[2020-03-10] MEDS: lamoTRIgine 100 MG TAB PO SCH (09:47)
[2020-03-10] MEDS: DOCUSATE SOD 100 MG CAP PO SCH (09:47)
[2020-03-10] MEDS: OXcarbazepine 300 MG TAB PO SCH (09:48)
[2020-03-10] MEDS: PANTOPRAZOLE 40 MG TAB PO SCH (09:48)
[2020-03-10] MEDS: FILGRASTIM (TBO) 300 MCG/0.5 ML SYRG SC SCH (09:49)
[2020-03-10] MEDS ORDERED: DOCU100C8 PO (11:13)
[2020-03-10] MEDS ORDERED: PRE5T PO (11:13)
[2020-03-10] MEDS ORDERED: LAM100T PO (11:13)
[2020-03-10] MEDS ORDERED: PANT40T PO (11:13)
[2020-03-10] MEDS ORDERED: KEP500T PO (11:13)
[2020-03-10] MEDS ORDERED: SUCR1TAB PO (11:13)
[2020-03-10] MEDS ORDERED: OXCA600T40 PO (11:14)
[2020-03-10 12:09] VITALS: BP 100/58
[2020-03-10 13:00] VITALS: BP 100/63
[2020-03-10 14:13] VITALS: BP 100/56
== END 2020-03-10 16:35 | disposition home or self-care (01) | DRG 720 ==
LOC: ER 01:52 → EDBD 01:52 → EDUNIT# 01:52 → TELE 01:53 → TELE-CENTR 22:45 → CENTRAL 03-09 11:25
PROVIDERS: ADMIT Nurse Practitioner Acute Care; ATTEND Internal Medicine
PROC: 0DB88ZX Excision of Small Intestine, Via Natural or Artificial Opening Endoscopic, Diagnostic (ICD-10-PCS; 2020-03-05)
PROC: 0DB68ZX Excision of Stomach, Via Natural or Artificial Opening Endoscopic, Diagnostic (ICD-10-PCS; principal; 2020-03-05 13:54)
PROC: 0FB03ZX Excision of Liver, Percutaneous Approach, Diagnostic (ICD-10-PCS; 2020-03-07)
DX: A41.9 Sepsis, unspecified organism (principal); J69.0 Pneumonitis due to inhalation of food and vomit; G93.41 Metabolic encephalopathy; J90 Pleural effusion, not elsewhere classified; D70.9 Neutropenia, unspecified; E44.0 Moderate protein-calorie malnutrition; D69.6 Thrombocytopenia, unspecified; I47.1 Supraventricular tachycardia; M32.9 Systemic lupus erythematosus, unspecified; S27.812A Contusion of esophagus (thoracic part), initial encounter; D63.8 Anemia in other chronic diseases classified elsewhere; J98.11 Atelectasis; K59.00 Constipation, unspecified; K76.0 Fatty (change of) liver, not elsewhere classified; D50.9 Iron deficiency anemia, unspecified; F03.90 Unspecified dementia, unspecified severity, without behavioral disturbance, psychotic disturbance, mood disturbance, and anxiety; E66.9 Obesity, unspecified; G40.909 Epilepsy, unspecified, not intractable, without status epilepticus; K75.4 Autoimmune hepatitis; I10 Essential (primary) hypertension; Z20.828 Contact with and (suspected) exposure to other viral communicable diseases; F70 Mild intellectual disabilities; K44.9 Diaphragmatic hernia without obstruction or gangrene; K31.9 Disease of stomach and duodenum, unspecified; K29.70 Gastritis, unspecified, without bleeding; Z87.442 Personal history of urinary calculi; Z79.899 Other long term (current) drug therapy; Z68.29 Body mass index [BMI] 29.0-29.9, adult
CPT/HCPCS: 10022; 36415; 43239; 70490; 71045; 71046; 71250; 71260; 74150; 74177; 76705; 77012; 80053; 80076; 80307; 81001; 82542; 82607; 82728; 82784; 82962; 83010; 83540; 83550; 83605; 83615; 83735; 84132; 84443; 84484; 84702; 85007; 85014; 85018; 85025; 85027; 85045; 85379; 85610; 85613; 85652; 85670; 85705; 85730; 85732; 86038; 86141; 86147; 86160; 86225; 86235; 86334; 86703; 86704; 86706; 86708; 86803; 86880; 87040; 87340; 92610; 93306; 94640; 95819; 96365; 96367; 97110; 97116; 97530; G0378; J0696; J1447; J1756; J1956; J2250; J2405; J2543; J2704; J7060